=== PATIENT | male | born 1945 | race Caucasian/White ===

== ENCOUNTER 2020-01-31 08:04 | Inpatient (IN) | payer OTHER ==
[~2020-01-31] VITALS: Ht 180.3 cm; Wt 74.8 kg
[2020-01-31 08:56] LABS: BASOPHILS % (AUTO) 0.1 % (0.0-5.0); HEMATOCRIT 36.6 % (42-54); LYMPHOCYTES % (AUTO) 10.9 % (21.0-51.0); MEAN CORPUSCULAR HEMOGLOBIN 29.2 pg (27.0-33.0); MEAN CORPUSCULAR HGB CONC 31.4 g/dL (32.0-36.0); MEAN CORPUSCULAR VOLUME 92.9 fL (79-99); MONOCYTES % (AUTO) 0.9 % (3.0-13.0); NEUTROPHILS % (AUTO) 87.2 % (40.0-77.0); PLATELET COUNT (AUTO) 161 K/uL (130-400); RED BLOOD CELL COUNT(AUTO) 3.94 MIL/uL (4.50-6.20); RED CELL DISTRIBUTION WIDTH 14.5 % (11.0-15.5); WHITE BLOOD COUNT (AUTO) 10.9 K/uL (4.8-10.8)
[2020-01-31 09:11] LABS: INR 0.99 (0.85-1.15); PROTHROMBIN TIME 10.7 SEC (9.6-11.6)
[2020-01-31 09:22] LABS: CREATININE 1.8 mg/dL (0.5-1.5); POTASSIUM 4.4 mmol/L (3.5-5.1)
[2020-01-31 09:24] LABS: B-TYPE NATRIURETIC PEPTIDE 122 pg/mL (0-100)
[2020-01-31 09:25] LABS: ALBUMIN 3.5 g/dL (3.5-5.0); BILIRUBIN,TOTAL 0.9 mg/dL (0.2-1.0); TOTAL PROTEIN, SERUM 7.1 g/dL (6.0-8.3)
[2020-01-31 09:26] LABS: RAPID GROUP A STREP NEGATIVE (NEGATIVE)
[2020-01-31 10:03] LABS: FERRITIN 725 ng/mL (30-400)
[2020-01-31 10:11] LABS: D-DIMER > 10000 ng/mL (0-500)
[2020-01-31] MEDS ORDERED: DOXYCYCLINE HYCLATE 100 MG TABLET PO ONE (11:52)
[2020-01-31] MEDS ORDERED: CEFTRIAXONE SODIUM 1 GM ONE (11:52)
[2020-01-31] MEDS ORDERED: LACTATED RINGERS 1000ML 1,000 ML IV SCH (12:03)
[2020-01-31] MEDS ORDERED: NITROGLYCERIN 0.4 MG SL TAB SL PRN (12:15)
[2020-01-31] MEDS ORDERED: METHYLPREDNISOLONE SOD SUCC 125MG/2ML VIAL IV SCH (12:15)
[2020-01-31] MEDS: CEFTRIAXONE SODIUM 1 GM IV SCH (12:15)
[2020-01-31] MEDS ORDERED: DiphenhydrAMINE HCL 50 MG/ML VIAL IV PRN (12:15)
[2020-01-31] MEDS ORDERED: DIPHENHYDRAMINE HCL 25 MG CAPSULE PO PRN (12:15)
[2020-01-31] MEDS ORDERED: GUAIFENESIN-DM 200/20 MG 10 ML PO PRN (12:15)
[2020-01-31] MEDS ORDERED: HYDRALAZINE HCL 20 MG/ML VIAL IV PRN (12:15)
[2020-01-31] MEDS ORDERED: MAG HYDROX/AL HYDROX/SIMETH ES 30 ML SUSP UDCUP PO PRN (12:15)
[2020-01-31] MEDS ORDERED: LACTULOSE 20 GM/30 ML UDCUP PO PRN (12:15)
[2020-01-31] MEDS ORDERED: ACETAMINOPHEN 325 MG TAB PO PRN ×2 (12:15)
[2020-01-31] MEDS: DOXYCYCLINE 100MG+NS 250ML 250 ML IV SCH (12:15)
[2020-01-31] MEDS ORDERED: ONDANSETRON HCL 4 MG/2 ML VIAL IV PRN (12:15)
[2020-01-31] MEDS: METHYLPREDNISOLONE SOD SUCC 40MG/ML 1ML IVP SCH ×2 (12:30→20:30)
[2020-01-31 12:37] LABS: APPEARANCE,URINE Clear (CLEAR); BILIRUBIN,URINE Negative (NEGATIVE); COLOR,URINE Yellow (YELLOW); GLUCOSE, URINE (UA) Negative (NEGATIVE); KETONES,URINE Negative (NEGATIVE); LEUKOCYTE ESTERASE ,URINE Negative (NEGATIVE); NITRATE,URINE Negative (NEGATIVE); OCCULT BLOOD,URINE Negative (NEGATIVE); PROTEIN,URINE POS 1+ mg/dL (NEGATIVE)
[2020-01-31] MEDS ORDERED: HYDRALAZINE HCL 20 MG/ML VIAL ONE ×2 (12:39→18:35)
[2020-01-31] MEDS ORDERED: ENOXAPARIN SODIUM 30 MG/0.3 ML SQ ONE (12:40)
[2020-01-31] MEDS ORDERED: TRAMADOL HCL 50 MG TABLET ONE ×2 (12:55→20:12)
[2020-01-31] MEDS ORDERED: METHYLPREDNISOLONE SOD SUCC 40MG/ML 1ML ONE ×3 (13:27→21:53)
[2020-01-31 13:28] LABS: BACTERIA,URINE Few /HPF (None Seen); CALCIUM OXALATE CRYSTALS,UR Few /LPF (None Seen)
[2020-01-31] MEDS: ENOXAPARIN SODIUM 80 MG/0.8 ML SQ SCH ×2 (14:00→21:00)
[2020-01-31] MEDS: FAMOTIDINE 20MG TAB 20 MG TAB PO SCH (21:00)
[2020-01-31] MEDS ORDERED: NITROGLYCERIN 1GM/1 INCH PACKET TD ONE (21:53)
[2020-01-31] MEDS: NITROGLYCERIN 1GM/1 INCH PACKET TD SCH (22:00)
[2020-02-01] MEDS: DOXYCYCLINE 100MG+NS 250ML 250 ML IV SCH ×2 (00:15→12:15)
[2020-02-01] MEDS: CEFTRIAXONE SODIUM 1 GM IV SCH ×2 (00:15→13:30)
[2020-02-01] MEDS ORDERED: CEFTRIAXONE SODIUM 1 GM ONE ×2 (01:23→12:15)
[2020-02-01] MEDS ORDERED: DOXYCYCLINE HYCLATE 100 MG TABLET PO ONE (01:23)
[2020-02-01] MEDS: NITROGLYCERIN 1GM/1 INCH PACKET TD SCH ×4 (04:00→22:00)
[2020-02-01] MEDS: METHYLPREDNISOLONE SOD SUCC 40MG/ML 1ML IVP SCH ×3 (04:30→20:30)
[2020-02-01 06:20] LABS: HEMATOCRIT 32.8 % (42-54); LYMPHOCYTES % (AUTO) 11.4 % (21.0-51.0); MEAN CORPUSCULAR HEMOGLOBIN 29.4 pg (27.0-33.0); MEAN CORPUSCULAR VOLUME 91.9 fL (79-99); MONOCYTES % (AUTO) 3.2 % (3.0-13.0); NEUTROPHILS % (AUTO) 84.3 % (40.0-77.0); PLATELET COUNT (AUTO) 188 K/uL (130-400); RED BLOOD CELL COUNT(AUTO) 3.57 MIL/uL (4.50-6.20); RED CELL DISTRIBUTION WIDTH 14.9 % (11.0-15.5); WHITE BLOOD COUNT (AUTO) 11.4 K/uL (4.8-10.8)
[2020-02-01 06:22] LABS: BILIRUBIN,TOTAL 0.6 mg/dL (0.2-1.0); CREATININE 1.4 mg/dL (0.5-1.5); CRP QUANTITATIVE 6.2 mg/L (0.00-9.0); POTASSIUM 4.1 mmol/L (3.5-5.1); TOTAL PROTEIN, SERUM 6.1 g/dL (6.0-8.3)
[2020-02-01] MEDS ORDERED: NITROGLYCERIN 1GM/1 INCH PACKET TD ONE ×3 (06:57→21:42)
[2020-02-01] MEDS ORDERED: TRAMADOL HCL 50 MG TABLET ONE ×3 (06:58→22:01)
[2020-02-01] MEDS: ENOXAPARIN SODIUM 80 MG/0.8 ML SQ SCH ×2 (09:00→21:00)
[2020-02-01] MEDS: FAMOTIDINE 20MG TAB 20 MG TAB PO SCH ×2 (09:00→21:00)
[2020-02-01] MEDS ORDERED: FAMOTIDINE 20MG TAB 20 MG TAB ONE (09:57)
[2020-02-01] MEDS ORDERED: SODIUM CHLORIDE 0.9% 100 ML IV ONE (12:15)
[2020-02-01] MEDS ORDERED: METHYLPREDNISOLONE SOD SUCC 125MG/2ML VIAL ONE (12:15)
--- NOTE | 2020-02-01 16:55 | NUR ---
DCP: HOME Sw spoke to pt's Janae Seymour [phone] or [phone]. reports pt is independent of ADLS, has walker w/c shower chair, and CPAP, no in home care services. Pt seen at [facility] and Dr Pierce for cancer. Plan is home at ok Addendum: 02/01/20 at 1657 by SHERLY CAMARA Amended: Links added.
[2020-02-01] MEDS ORDERED: ENOXAPARIN SODIUM 100 MG/1 ML SQ ONE (21:41)
[2020-02-01] MEDS ORDERED: METHYLPREDNISOLONE SOD SUCC 40MG/ML 1ML ONE (21:42)
[2020-02-01] MEDS ORDERED: FAMOTIDINE/PF 20 MG/2 ML VIAL IV ONE (21:43)
[2020-02-02] MEDS: CEFTRIAXONE SODIUM 1 GM IV SCH ×2 (00:15→12:15)
[2020-02-02] MEDS: DOXYCYCLINE 100MG+NS 250ML 250 ML IV SCH ×2 (00:15→12:15)
[2020-02-02] MEDS ORDERED: CEFTRIAXONE SODIUM 1 GM ONE (01:46)
[2020-02-02] MEDS ORDERED: DOXYCYCLINE HYCLATE 100 MG TABLET PO ONE (01:46)
[2020-02-02] MEDS: NITROGLYCERIN 1GM/1 INCH PACKET TD SCH ×4 (04:00→22:00)
[2020-02-02] MEDS: METHYLPREDNISOLONE SOD SUCC 40MG/ML 1ML IVP SCH ×3 (04:30→20:30)
[2020-02-02 06:54] LABS: BASOPHILS % (AUTO) 0.1 % (0.0-5.0); EOSINOPHILS % (AUTO) 0.1 % (0.0-8.0); HEMATOCRIT 35.5 % (42-54); LYMPHOCYTES % (AUTO) 10.9 % (21.0-51.0); MEAN CORPUSCULAR HEMOGLOBIN 29.2 pg (27.0-33.0); MEAN CORPUSCULAR HGB CONC 31.3 g/dL (32.0-36.0); MEAN CORPUSCULAR VOLUME 93.4 fL (79-99); MONOCYTES % (AUTO) 3.1 % (3.0-13.0); NEUTROPHILS % (AUTO) 84.2 % (40.0-77.0); PLATELET COUNT (AUTO) 217 K/uL (130-400); RED CELL DISTRIBUTION WIDTH 15.1 % (11.0-15.5); WHITE BLOOD COUNT (AUTO) 14.1 K/uL (4.8-10.8)
[2020-02-02 07:28] LABS: ALBUMIN 3.3 g/dL (3.5-5.0); BILIRUBIN,TOTAL 0.6 mg/dL (0.2-1.0); CREATININE 1.3 mg/dL (0.5-1.5); POTASSIUM 3.9 mmol/L (3.5-5.1); TOTAL PROTEIN, SERUM 6.6 g/dL (6.0-8.3)
[2020-02-02] MEDS: ENOXAPARIN SODIUM 80 MG/0.8 ML SQ SCH ×2 (09:00→21:00)
[2020-02-02] MEDS: FAMOTIDINE 20MG TAB 20 MG TAB PO SCH ×2 (09:00→21:00)
[2020-02-02] MEDS ORDERED: ENOXAPARIN SODIUM 100 MG/1 ML SQ ONE (09:40)
[2020-02-02] MEDS ORDERED: NITROGLYCERIN 1GM/1 INCH PACKET TD ONE (09:40)
[2020-02-02] MEDS ORDERED: FAMOTIDINE/PF 20 MG/2 ML VIAL IV ONE (09:41)
[2020-02-02] MEDS ORDERED: METHYLPREDNISOLONE SOD SUCC 40MG/ML 1ML ONE ×2 (14:04→23:10)
[2020-02-02] MEDS ORDERED: DOXYCYCLINE 100MG+NS 250ML 250 ML IV ONE (14:04)
[2020-02-02] MEDS ORDERED: TRAMADOL HCL 50 MG TABLET ONE ×2 (14:05→22:50)
[2020-02-02] MEDS ORDERED: ENOXAPARIN SODIUM 40 MG/0.4 ML SYRINGE SQ ONE (23:10)
[2020-02-03] MEDS: CEFTRIAXONE SODIUM 1 GM IV SCH ×3 (00:15→23:13)
[2020-02-03] MEDS: DOXYCYCLINE 100MG+NS 250ML 250 ML IV SCH ×3 (00:15→23:45)
[2020-02-03] MEDS ORDERED: CEFTRIAXONE SODIUM 1 GM ONE ×2 (00:50→13:22)
[2020-02-03] MEDS ORDERED: NITROGLYCERIN 1GM/1 INCH PACKET TD ONE ×2 (00:51→09:57)
[2020-02-03] MEDS ORDERED: DOXYCYCLINE HYCLATE 100 MG TABLET PO ONE (00:52)
[2020-02-03] MEDS ORDERED: ACETAMINOPHEN 325 MG TAB ONE (01:16)
[2020-02-03] MEDS: NITROGLYCERIN 1GM/1 INCH PACKET TD SCH ×4 (04:00→22:34)
[2020-02-03] MEDS: METHYLPREDNISOLONE SOD SUCC 40MG/ML 1ML IVP SCH ×3 (04:30→22:33)
[2020-02-03] MEDS ORDERED: METHYLPREDNISOLONE SOD SUCC 125MG/2ML VIAL ONE (06:24)
[2020-02-03 06:46] LABS: BASOPHILS % (AUTO) 0.1 % (0.0-5.0); EOSINOPHILS % (AUTO) 0.1 % (0.0-8.0); HEMATOCRIT 32.6 % (42-54); LYMPHOCYTES % (AUTO) 8.2 % (21.0-51.0); MEAN CORPUSCULAR HEMOGLOBIN 29.7 pg (27.0-33.0); MEAN CORPUSCULAR HGB CONC 31.9 g/dL (32.0-36.0); MEAN CORPUSCULAR VOLUME 93.1 fL (79-99); MONOCYTES % (AUTO) 3.6 % (3.0-13.0); NEUTROPHILS % (AUTO) 87.1 % (40.0-77.0); PLATELET COUNT (AUTO) 181 K/uL (130-400); RED CELL DISTRIBUTION WIDTH 14.9 % (11.0-15.5); WHITE BLOOD COUNT (AUTO) 12.3 K/uL (4.8-10.8)
[2020-02-03 07:22] LABS: ALANINE AMINOTRANSFERASE 24 U/L (12-78); ALBUMIN 2.9 g/dL (3.5-5.0); ASPARTATE AMINOTRANSFERASE 19 U/L (10-37); BILIRUBIN,TOTAL 0.5 mg/dL (0.2-1.0); CARBON DIOXIDE 26 mmol/L (21-32); CHLORIDE 105 mmol/L (101-111); CREATININE 1.3 mg/dL (0.5-1.5); GLOMERULAR FILTR. RATE CALC 57 mL/min (>60); GLUCOSE,RANDOM 162 mg/dL (70-105); LACTATE DEHYDROGENASE 253 U/L (81-234); POTASSIUM 3.9 mmol/L (3.5-5.1); SODIUM SERUM 139 mmol/L (136-145); TOTAL PROTEIN, SERUM 5.7 g/dL (6.0-8.3); UREA NITROGEN, BLOOD 32 mg/dL (7-18)
[2020-02-03 07:23] LABS: CRP QUANTITATIVE < 2.00 mg/L (0.00-9.0)
[2020-02-03] MEDS: ENOXAPARIN SODIUM 80 MG/0.8 ML SQ SCH ×2 (09:00→22:33)
[2020-02-03] MEDS: FAMOTIDINE 20MG TAB 20 MG TAB PO SCH ×2 (09:00→21:00)
[2020-02-03] MEDS ORDERED: ENOXAPARIN SODIUM 60 MG/0.6 ML SQ ONE (09:56)
[2020-02-03] MEDS ORDERED: ENOXAPARIN SODIUM 30 MG/0.3 ML SQ ONE (09:57)
[2020-02-03] MEDS ORDERED: FAMOTIDINE/PF 20 MG/2 ML VIAL IV ONE (10:00)
[2020-02-03] MEDS ORDERED: SODIUM CHLORIDE 0.9% 100 ML IV ONE (13:22)
[2020-02-03 14:05] VITALS: BP 147/80
[2020-02-03] MEDS ORDERED: DEXA4TAB PO (15:21)
[2020-02-03] MEDS ORDERED: ONDA8TAB65 PO (15:21)
[2020-02-03] MEDS ORDERED: TRAM50TA4 PO (15:21)
[2020-02-03] MEDS ORDERED: CHOL5POW MC (15:21)
[2020-02-03] MEDS ORDERED: [UNRECOGNIZED DRUG - CODE] SQ (15:21)
[2020-02-03] MEDS ORDERED: LOSA100T58 PO (15:21)
[2020-02-03] MEDS ORDERED: POLY30DR OP (15:21)
[2020-02-03 16:00] VITALS: BP 160/94
[2020-02-03] MEDS: LOPERAMIDE HCL 2 MG CAP PO PRN (16:51)
[2020-02-04] VITALS (7 sets, daily range): BP systolic 126–171; BP diastolic 84–96
[2020-02-04] MEDS: NITROGLYCERIN 1GM/1 INCH PACKET TD SCH ×4 (04:08→21:34)
[2020-02-04 05:36] LABS: BASOPHILS % (AUTO) 0.3 % (0.0-5.0); HEMATOCRIT 34.8 % (42-54); LYMPHOCYTES % (AUTO) 8.6 % (21.0-51.0); MEAN CORPUSCULAR HGB CONC 31.3 g/dL (32.0-36.0); MEAN CORPUSCULAR VOLUME 92.6 fL (79-99); MONOCYTES % (AUTO) 4.8 % (3.0-13.0); NEUTROPHILS % (AUTO) 84.4 % (40.0-77.0); PLATELET COUNT (AUTO) 195 K/uL (130-400); RED BLOOD CELL COUNT(AUTO) 3.76 MIL/uL (4.50-6.20); RED CELL DISTRIBUTION WIDTH 14.6 % (11.0-15.5); WHITE BLOOD COUNT (AUTO) 11.9 K/uL (4.8-10.8)
[2020-02-04] MEDS: METHYLPREDNISOLONE SOD SUCC 40MG/ML 1ML IVP SCH ×3 (06:11→21:56)
[2020-02-04] MEDS ORDERED: ARTIFICAL TEARS SOL 15 ML OP PRN (08:30)
[2020-02-04 08:57] LABS: CREATININE 1.4 mg/dL (0.5-1.5); POTASSIUM 3.8 mmol/L (3.5-5.1)
[2020-02-04] MEDS: FAMOTIDINE 20MG TAB 20 MG TAB PO SCH ×2 (09:00→21:00)
[2020-02-04 09:01] LABS: CRP QUANTITATIVE 2.8 mg/L (0.00-9.0)
[2020-02-04] MEDS ORDERED: APIXABAN 5 MG TABLET PO SCH ×3 (09:15→21:00)
[2020-02-04] MEDS: LOSARTAN 100 MG TABLET PO SCH (09:35)
[2020-02-04] MEDS: CHOLESTYRAMINE PACKET 4 GM PACKET PO SCH (09:35)
[2020-02-04] MEDS: ENOXAPARIN SODIUM 80 MG/0.8 ML SQ SCH (09:36)
[2020-02-04] MEDS ORDERED: AMOX-429 PO (10:12)
[2020-02-04] MEDS ORDERED: APIX5TAB PO (10:12)
[2020-02-04] MEDS: DOXYCYCLINE 100MG+NS 250ML 250 ML IV SCH (12:11)
[2020-02-04] MEDS: CEFTRIAXONE SODIUM 1 GM IV SCH (12:11)
[2020-02-04] MEDS: DOXYCYCLINE HYCLATE 100 MG TABLET PO SCH ×2 (13:30→21:16)
[2020-02-04] MEDS: TRAMADOL HCL 50 MG TABLET PO PRN ×2 (14:05→21:32)
[2020-02-05] MEDS: CEFTRIAXONE SODIUM 1 GM IV SCH ×2 (00:09→12:48)
[2020-02-05 03:54] VITALS: BP 139/82
[2020-02-05] MEDS: NITROGLYCERIN 1GM/1 INCH PACKET TD SCH ×2 (04:00→11:37)
[2020-02-05 05:24] LABS: BASOPHILS % (AUTO) 0.2 % (0.0-5.0); HEMATOCRIT 33.3 % (42-54); LYMPHOCYTES % (AUTO) 8.8 % (21.0-51.0); MEAN CORPUSCULAR HEMOGLOBIN 29.1 pg (27.0-33.0); MEAN CORPUSCULAR HGB CONC 31.5 g/dL (32.0-36.0); MEAN CORPUSCULAR VOLUME 92.2 fL (79-99); MONOCYTES % (AUTO) 3.4 % (3.0-13.0); NEUTROPHILS % (AUTO) 85.7 % (40.0-77.0); PLATELET COUNT (AUTO) 195 K/uL (130-400); RED BLOOD CELL COUNT(AUTO) 3.61 MIL/uL (4.50-6.20); RED CELL DISTRIBUTION WIDTH 14.5 % (11.0-15.5); WHITE BLOOD COUNT (AUTO) 12.1 K/uL (4.8-10.8)
[2020-02-05 05:49] LABS: ALBUMIN 2.8 g/dL (3.5-5.0); BILIRUBIN,TOTAL 0.7 mg/dL (0.2-1.0); CREATININE 1.3 mg/dL (0.5-1.5); CRP QUANTITATIVE 2.5 mg/L (0.00-9.0); POTASSIUM 3.6 mmol/L (3.5-5.1); TOTAL PROTEIN, SERUM 5.5 g/dL (6.0-8.3)
[2020-02-05] MEDS: METHYLPREDNISOLONE SOD SUCC 40MG/ML 1ML IVP SCH ×2 (06:03→15:15)
[2020-02-05 08:58] VITALS: BP 157/89
[2020-02-05] MEDS ORDERED: APIXABAN 5 MG TABLET PO SCH (09:00)
[2020-02-05] MEDS: LOSARTAN 100 MG TABLET PO SCH (09:15)
[2020-02-05] MEDS: CHOLESTYRAMINE PACKET 4 GM PACKET PO SCH (09:15)
[2020-02-05] MEDS: DOXYCYCLINE HYCLATE 100 MG TABLET PO SCH (09:15)
[2020-02-05] MEDS: FAMOTIDINE 20MG TAB 20 MG TAB PO SCH (11:35)
[2020-02-05 12:40] VITALS: BP 146/82
[2020-02-05] MEDS: LOPERAMIDE HCL 2 MG CAP PO PRN (13:20)
[2020-02-05] MEDS ORDERED: SULFAMETHOX-TMP DS 800/160 TAB PO SCH ×2 (14:30→21:00)
[2020-02-05] MEDS ORDERED: SULF1TAB42 PO (14:36)
--- NOTE | 2020-02-05 17:20 | NUR ---
PER MD ORDERS DISCHARGED PT. TELE AND IV REMOVED, IV TIP INTACT. DISCHARGE INSTRUCTIONS GIVEN TO PT, REVIEWED APPT DATES/TIMES AND NEW MEDICATIONS. PT STATED UNDERSTANDING.
== END 2020-02-05 17:20 | disposition home or self-care (01) | DRG 299 ==
LOC: EDH 08:04 → EDHIP 12:03 → 3AH 02-03 12:56
PROVIDERS: ADMIT Family Medicine; ATTEND Family Medicine
DX: I82.412 Acute embolism and thrombosis of left femoral vein (principal); I26.99 Other pulmonary embolism without acute cor pulmonale; J18.9 Pneumonia, unspecified organism; J96.01 Acute respiratory failure with hypoxia; N17.9 Acute kidney failure, unspecified; C90.00 Multiple myeloma not having achieved remission; J98.11 Atelectasis; I82.432 Acute embolism and thrombosis of left popliteal vein; D64.9 Anemia, unspecified; N18.9 Chronic kidney disease, unspecified; I12.9 Hypertensive chronic kidney disease with stage 1 through stage 4 chronic kidney disease, or unspecified chronic kidney disease; E78.5 Hyperlipidemia, unspecified; Z20.828 Contact with and (suspected) exposure to other viral communicable diseases; Z92.21 Personal history of antineoplastic chemotherapy
CPT/HCPCS: 36415; 71045; 71250; 80048; 80053; 81001; 82550; 82728; 83605; 83615; 83880; 84145; 84484; 85025; 85378; 85610; 85730; 86140; 87040; 87804; 87880; 93005; 93970; 99291; G0378; J0360; J0696; J1650; J2920; J2930; J3490; U0003

== ENCOUNTER 2020-02-21 12:22 | Inpatient (IN) | payer OTHER ==
[~2020-02-21] VITALS: Ht 180.3 cm; Wt 73.2 kg
[~2020-02-21 12:22] MED LIST: APIX5TAB PO; CHOL5POW MC; DEXA4TAB PO; LOSA100T58 PO; ONDA8TAB65 PO; POLY30DR OP; SULF1TAB42 PO; TRAM50TA4 PO; [UNRECOGNIZED DRUG - CODE] SQ
[2020-02-21 13:30] LABS: HEMATOCRIT 33.5 % (42-54); LYMPHOCYTES % (AUTO) 9.7 % (21.0-51.0); MEAN CORPUSCULAR HEMOGLOBIN 29.6 pg (27.0-33.0); MEAN CORPUSCULAR HGB CONC 31.6 g/dL (32.0-36.0); MEAN CORPUSCULAR VOLUME 93.6 fL (79-99); MONOCYTES % (AUTO) 5.5 % (3.0-13.0); NEUTROPHILS % (AUTO) 84.5 % (40.0-77.0); PLATELET COUNT (AUTO) 168 K/uL (130-400); RED BLOOD CELL COUNT(AUTO) 3.58 MIL/uL (4.50-6.20); WHITE BLOOD COUNT (AUTO) 8.9 K/uL (4.8-10.8)
[2020-02-21 13:39] LABS: CREATININE 1.5 mg/dL (0.5-1.5)
[2020-02-21] MEDS ORDERED: SODIUM CHLORIDE 0.9% 500ML 500 ML IV ONE (13:43)
[2020-02-21 13:45] LABS: ALBUMIN 3.3 g/dL (3.5-5.0); BILIRUBIN,TOTAL 0.7 mg/dL (0.2-1.0); TOTAL PROTEIN, SERUM 6.7 g/dL (6.0-8.3)
[2020-02-21 14:13] LABS: B-TYPE NATRIURETIC PEPTIDE 153 pg/mL (0-100)
[2020-02-21 15:23] LABS: APPEARANCE,URINE SL CLOUDY (CLEAR); BILIRUBIN,URINE NEGATIVE (NEGATIVE); COLOR,URINE YELLOW (YELLOW); GLUCOSE, URINE (UA) NEGATIVE (NEGATIVE); KETONES,URINE 5 mg/dL (NEGATIVE); LEUKOCYTE ESTERASE ,URINE NEGATIVE (NEGATIVE); NITRATE,URINE NEGATIVE (NEGATIVE); OCCULT BLOOD,URINE MODERATE (NEGATIVE); PROTEIN,URINE 30 mg/dL (NEGATIVE); UROBILINOGEN,URINE 0.2 mg/dL (0.2-1.0)
[2020-02-21 15:30] LABS: BACTERIA,URINE Few /HPF (None Seen); RBC,URINE 26-50 /HPF (0-1); SQUAMOUS EPITHELIAL CELL,UR Few /HPF (0-2)
[2020-02-21 15:31] LABS: MUCUS,URINE Moderate LPF (None Seen)
[2020-02-21] MEDS ORDERED: IOHEXOL-350 75 ML VIAL IV ONE (16:21)
[2020-02-21] MEDS ORDERED: HYDRALAZINE HCL 20 MG/ML VIAL ONE (16:55)
[2020-02-21] MEDS ORDERED: ACETAMINOPHEN EXTRA STRENGTH 500 MG TABLET ONE (18:12)
[2020-02-21] MEDS ORDERED: SODIUM CHLORIDE 0.9% 1000ML 1,000 ML IV SCH (19:11)
[2020-02-21] MEDS ORDERED: DIPHENHYDRAMINE HCL 25 MG CAPSULE PO PRN (19:15)
[2020-02-21] MEDS ORDERED: ONDANSETRON HCL 4 MG/2 ML VIAL IV PRN (19:15)
[2020-02-21] MEDS ORDERED: NITROGLYCERIN 0.4 MG SL TAB SL PRN (19:15)
[2020-02-21] MEDS ORDERED: ERGOCALCIFEROL (VITAMIN D2) 50,000 UNIT CAPSULE PO ONE (20:00)
[2020-02-21 23:18] LABS: LACTATE DEHYDROGENASE 205 U/L (81-234); TRIGLYCERIDES 75 mg/dL (30-200)
[2020-02-22] MEDS ORDERED: HEPARIN SODIUM 5000UNIT/ML 1ML VIAL ONE (00:08)
[2020-02-22] MEDS ORDERED: HEPARIN 25000 UNITS/250 ML D5W 250 ML IV ONE (00:08)
[2020-02-22] MEDS ORDERED: FAMOTIDINE/PF 20 MG/2 ML VIAL IV ONE (00:09)
[2020-02-22] MEDS ORDERED: ERGOCALCIFEROL (VITAMIN D2) 50,000 UNIT CAPSULE ONE (00:09)
[2020-02-22] MEDS ORDERED: HYDRALAZINE HCL 20 MG/ML VIAL IV PRN (01:30)
[2020-02-22 01:47] LABS: INR 0.96 (0.85-1.15); PARTIAL THROMBOPLASTIN TIME 32.3 SEC (26.3-35.5); PROTHROMBIN TIME 10.4 SEC (9.6-11.6)
[2020-02-22 06:12] LABS: BASOPHILS % (AUTO) 0.1 % (0.0-5.0); EOSINOPHILS % (AUTO) 0.4 % (0.0-8.0); HEMATOCRIT 30.3 % (42-54); LYMPHOCYTES % (AUTO) 25.4 % (21.0-51.0); MEAN CORPUSCULAR HEMOGLOBIN 30.2 pg (27.0-33.0); MEAN CORPUSCULAR HGB CONC 32.3 g/dL (32.0-36.0); MEAN CORPUSCULAR VOLUME 93.5 fL (79-99); MONOCYTES % (AUTO) 7.4 % (3.0-13.0); NEUTROPHILS % (AUTO) 66.3 % (40.0-77.0); PLATELET COUNT (AUTO) 138 K/uL (130-400); RED BLOOD CELL COUNT(AUTO) 3.24 MIL/uL (4.50-6.20); RED CELL DISTRIBUTION WIDTH 15.6 % (11.0-15.5); WHITE BLOOD COUNT (AUTO) 7.3 K/uL (4.8-10.8)
[2020-02-22 06:56] LABS: ALANINE AMINOTRANSFERASE 25 U/L (12-78); ALBUMIN 2.9 g/dL (3.5-5.0); ASPARTATE AMINOTRANSFERASE 15 U/L (10-37); BILIRUBIN,TOTAL 0.6 mg/dL (0.2-1.0); CARBON DIOXIDE 21 mmol/L (21-32); CHLORIDE 112 mmol/L (101-111); CREATININE 1.2 mg/dL (0.5-1.5); GLOMERULAR FILTR. RATE CALC 63 mL/min (>60); GLUCOSE,RANDOM 115 mg/dL (70-105); LACTATE DEHYDROGENASE 191 U/L (81-234); POTASSIUM 3.7 mmol/L (3.5-5.1); SODIUM SERUM 143 mmol/L (136-145); TOTAL PROTEIN, SERUM 5.5 g/dL (6.0-8.3); UREA NITROGEN, BLOOD 25 mg/dL (7-18)
[2020-02-22 07:38] LABS: PROTHROMBIN TIME 10.8 SEC (9.6-11.6)
[2020-02-22 07:45] LABS: PARTIAL THROMBOPLASTIN TIME > 120.0 SEC (26.3-35.5)
[2020-02-22] MEDS ORDERED: ALBUTEROL INHALER 90MCG/INH IH PRN (09:30)
[2020-02-22] MEDS ORDERED: ASCORBIC ACID 500 MG TAB ONE (10:54)
[2020-02-22] MEDS ORDERED: FAMOTIDINE 20MG TAB 20 MG TAB ONE (10:54)
[2020-02-22] MEDS ORDERED: ZINC SULFATE 220 CAPSULE ONE (10:55)
[2020-02-22] MEDS: FAMOTIDINE 20MG TAB 20 MG TAB PO SCH (10:57)
[2020-02-22] MEDS: ZINC SULFATE 220 CAPSULE PO SCH (10:57)
[2020-02-22] MEDS: ASCORBIC ACID 500 MG TAB PO SCH (10:57)
[2020-02-22] MEDS ORDERED: ACETAMINOPHEN 325 MG TAB ONE (11:00)
[2020-02-22] MEDS ORDERED: TRAMADOL HCL 50 MG TABLET PO PRN (11:00)
[2020-02-22] MEDS ORDERED: OCTREOTIDE ACETATE 100 MCG/ML AMP SQ PRN (11:00)
[2020-02-22] MEDS ORDERED: ARTIFICAL TEARS SOL 15 ML OP PRN (11:00)
[2020-02-22] MEDS ORDERED: DEXAMETHASONE 4 MG TAB PO SCH (11:05)
[2020-02-22 12:00] VITALS: BP 146/86
[2020-02-22] MEDS: CHOLESTYRAMINE PACKET 4 GM PACKET PO SCH (12:27)
[2020-02-22] MEDS ORDERED: LOSARTAN 50 MG TABLET ONE (12:30)
--- NOTE | 2020-02-22 12:49 | NUR ---
SPOKE TO PARTNER ON PHONE FOR DC PLANNING SPOKE TO SANCHEZ BRANCH VIA PHONE- SHE STATES THE NUMBER WE HAVE IN SYSTEM FOR PATIENT IS INCORRECT- HE HAS HIS PHONE [phone] & SPECIALTY PERSON WITH HIM . STATES SHE IS GIRLFRIEND, NOT SPOUSE- (PT HAD LISTED HER SPOUSE WHEN ASKED AT ADMISSION)- BUT IS CURRENTLY LIVING WITH PATIENT BECAUSE HE HAS A RECENT DECREASE IN FUNCTION. PREVIOUSLY PT WAS INDEPENDENT ALTHOUGH HE USED A CANE, WALKER, AND HAD A WHEELCHAIR AVAILABLE . HE HAS A NEBULIZER, WAS PRESCRIBED CPAP BUT ONLY USED IT FOR ONE NIGHT - HE SAID IT WAS TOO NOISY. SANCHEZ WILL PROVIDE TRANSPORT HOME AND WILL BE AVAILABLE TO PROVIDE CARE DURING RECOVERY .ADDED DAUGHTER'S NAME/# ANNIE MCKEON [phone]- L[place]ES [place] OF [place]. WILL FAX TO REGISTRATION FOR UPDATING Addendum: 02/23/20 at 1155 by ROSELYN ANDERSON RN CM Amended: Links added.
[2020-02-22] MEDS: LOSARTAN 100 MG TABLET PO SCH (13:00)
--- NOTE | 2020-02-22 16:05 | NUR ---
TELE MED CALL WITH DR CONROY. UPDATED ON VS AND PT STATUS, QUESTIONS ANSWERED, NO NEW ORDERS RECEIVED
[2020-02-22 16:07] VITALS: BP 132/75
--- NOTE | 2020-02-22 19:05 | NUR ---
IV TO RIGHT AC LEAKING, D/C AND STARTED 20GA LEFT HAND. HEPARIN INFUSING.
[2020-02-23] MEDS ORDERED: HEPARIN 25000 UNITS/250 ML D5W 250 ML IV ONE (00:45)
[2020-02-23] MEDS ORDERED: ACETAMINOPHEN 325 MG TAB ONE ×2 (03:12→08:35)
[2020-02-23 06:07] LABS: BASOPHILS % (AUTO) 0.2 % (0.0-5.0); EOSINOPHILS % (AUTO) 3.4 % (0.0-8.0); HEMATOCRIT 29.9 % (42-54); LYMPHOCYTES % (AUTO) 34.1 % (21.0-51.0); MEAN CORPUSCULAR HEMOGLOBIN 29.2 pg (27.0-33.0); MEAN CORPUSCULAR HGB CONC 31.1 g/dL (32.0-36.0); MONOCYTES % (AUTO) 8.4 % (3.0-13.0); NEUTROPHILS % (AUTO) 53.2 % (40.0-77.0); PLATELET COUNT (AUTO) 138 K/uL (130-400); RED BLOOD CELL COUNT(AUTO) 3.18 MIL/uL (4.50-6.20); RED CELL DISTRIBUTION WIDTH 15.5 % (11.0-15.5); WHITE BLOOD COUNT (AUTO) 5.9 K/uL (4.8-10.8)
[2020-02-23 06:49] LABS: ALANINE AMINOTRANSFERASE 29 U/L (12-78); ALBUMIN 2.7 g/dL (3.5-5.0); ASPARTATE AMINOTRANSFERASE 19 U/L (10-37); BILIRUBIN,TOTAL 0.6 mg/dL (0.2-1.0); CARBON DIOXIDE 25 mmol/L (21-32); CHLORIDE 113 mmol/L (101-111); CREATININE 1.1 mg/dL (0.5-1.5); CRP QUANTITATIVE < 2.00 mg/L (0.00-9.0); GLOMERULAR FILTR. RATE CALC 69 mL/min (>60); GLUCOSE,RANDOM 95 mg/dL (70-105); LACTATE DEHYDROGENASE 195 U/L (81-234); POTASSIUM 3.5 mmol/L (3.5-5.1); SODIUM SERUM 144 mmol/L (136-145); TOTAL PROTEIN, SERUM 5.3 g/dL (6.0-8.3); UREA NITROGEN, BLOOD 21 mg/dL (7-18)
[2020-02-23] MEDS ORDERED: CHOLESTYRAMINE 5 GM MC SCH (09:00)
--- NOTE | 2020-02-23 11:45 | NUR ---
Pt arrived from ED to room 322, vitals WNL, O2 98% on room air, but exhibits some shortness of breath upon talking, so O2 @ 2lpm via nc applied. Has 20 g left hand with heparin infusing at 13 ml/hr (1300 unit/hr), last PTT drawn just before transfer to floor, awaiting results. Verified IV pump settings for heparin with 2nd nurse Wilber Goodson LVN. Pt also c/o yellow, mucoid diarrhea this morning. States in chronic due to chemotherapy, takes sq octreotide prn at home. Home meds, including this one, have been resumed at hospital, notified pharmacy of need to deliver to floor. Notified pt will administer as soon as available. Oriented pt to room and call light, bedside table and call light in easy reach.
[2020-02-23 12:00] VITALS: BP 128/68
--- NOTE | 2020-02-23 12:00 | NUR ---
Call placed to Dr. Pierce's cell phone to notify of transfer. No answer; message left requesting call back.
--- NOTE | 2020-02-23 12:30 | NUR ---
PTT 80.5, per heparin protocol, must adjust down by 2 units/kg/hr. Pump settings changes to 1100 units per hr (11ml/hr), verification with Ulysses Bell RN. Still awaiting arrival of SQ octreotide.
[2020-02-23] MEDS: LOSARTAN 100 MG TABLET PO SCH (13:18)
[2020-02-23] MEDS: CHOLESTYRAMINE PACKET 4 GM PACKET PO SCH (13:18)
[2020-02-23] MEDS: ZINC SULFATE 220 CAPSULE PO SCH (13:19)
[2020-02-23] MEDS: ASCORBIC ACID 500 MG TAB PO SCH (13:19)
[2020-02-23] MEDS: FAMOTIDINE 20MG TAB 20 MG TAB PO SCH (13:19)
[2020-02-23 16:00] VITALS: BP 125/73
--- NOTE | 2020-02-23 18:30 | NUR ---
No call back thus far from Dr. Pierce. Called to office/answering service, jerri hernandez. Will attempt again. Awaiting results of 1829 pt/ptt for heparin adjustment. Addendum: 02/23/20 at 1918 by HERMES ZARAGOZA RN RN Paged Dr. King, hand stoner for Dr. Pierce, via answering service. Awaiting call back.
[2020-02-23 18:51] LABS: INR 0.99 (0.85-1.15); PARTIAL THROMBOPLASTIN TIME 74.5 SEC (26.3-35.5); PROTHROMBIN TIME 10.7 SEC (9.6-11.6)
--- NOTE | 2020-02-23 19:00 | NUR ---
PTT is 74.5. Per heparin protocol, dose is to be decreased by 2 units/kg/hr. New pump setting is 900 units/hr or 9 ml/hr, verified by second nurse Ulysses Jama RN.
[2020-02-23 20:00] VITALS: BP 147/95
[2020-02-23] MEDS: HEPARIN 25000 UNITS/250 ML D5W 250 ML IV SCH (21:53)
[2020-02-24] VITALS: BP 139/83
[2020-02-24 01:50] LABS: PARTIAL THROMBOPLASTIN TIME 45.3 SEC (26.3-35.5); PROTHROMBIN TIME 10.8 SEC (9.6-11.6)
--- NOTE | 2020-02-24 02:25 | NUR ---
ptt is 45.3 so i changed his heparin drip from 9 ml/hr to 11 ml/hr. fredy morrissey RN, witnessed the change
[2020-02-24 04:00] VITALS: BP 146/92
[2020-02-24 05:32] LABS: BASOPHILS % (AUTO) 0.2 % (0.0-5.0); EOSINOPHILS % (AUTO) 4.6 % (0.0-8.0); HEMATOCRIT 32.2 % (42-54); LYMPHOCYTES % (AUTO) 30.4 % (21.0-51.0); MEAN CORPUSCULAR HEMOGLOBIN 29.5 pg (27.0-33.0); MEAN CORPUSCULAR HGB CONC 31.1 g/dL (32.0-36.0); MONOCYTES % (AUTO) 8.5 % (3.0-13.0); NEUTROPHILS % (AUTO) 55.8 % (40.0-77.0); PLATELET COUNT (AUTO) 151 K/uL (130-400); RED BLOOD CELL COUNT(AUTO) 3.39 MIL/uL (4.50-6.20); RED CELL DISTRIBUTION WIDTH 15.4 % (11.0-15.5); WHITE BLOOD COUNT (AUTO) 5.9 K/uL (4.8-10.8)
[2020-02-24 05:58] LABS: ALANINE AMINOTRANSFERASE 28 U/L (12-78); ALBUMIN 2.6 g/dL (3.5-5.0); ASPARTATE AMINOTRANSFERASE 18 U/L (10-37); BILIRUBIN,TOTAL 0.6 mg/dL (0.2-1.0); CARBON DIOXIDE 25 mmol/L (21-32); CHLORIDE 110 mmol/L (101-111); CREATININE 1.1 mg/dL (0.5-1.5); GLOMERULAR FILTR. RATE CALC 69 mL/min (>60); GLUCOSE,RANDOM 102 mg/dL (70-105); LACTATE DEHYDROGENASE 158 U/L (81-234); POTASSIUM 3.7 mmol/L (3.5-5.1); SODIUM SERUM 143 mmol/L (136-145); TOTAL PROTEIN, SERUM 5.3 g/dL (6.0-8.3); UREA NITROGEN, BLOOD 19 mg/dL (7-18)
[2020-02-24 05:59] LABS: CRP QUANTITATIVE < 2.00 mg/L (0.00-9.0)
[2020-02-24] MEDS: ACETAMINOPHEN 325 MG TAB PO PRN ×2 (07:36→21:58)
[2020-02-24 08:09] LABS: INR 1.02 (0.85-1.15); PARTIAL THROMBOPLASTIN TIME 52.7 SEC (26.3-35.5)
[2020-02-24 08:28] VITALS: BP 143/86
[2020-02-24] MEDS: CHOLESTYRAMINE PACKET 4 GM PACKET PO SCH (09:41)
[2020-02-24] MEDS: FAMOTIDINE 20MG TAB 20 MG TAB PO SCH (09:42)
[2020-02-24] MEDS: ASCORBIC ACID 500 MG TAB PO SCH (09:42)
[2020-02-24] MEDS: LOSARTAN 100 MG TABLET PO SCH (09:42)
[2020-02-24] MEDS: ZINC SULFATE 220 CAPSULE PO SCH (09:42)
[2020-02-24 11:06] LABS: INR 1.02 (0.85-1.15); PARTIAL THROMBOPLASTIN TIME 60.3 SEC (26.3-35.5)
[2020-02-24 12:00] VITALS: BP 141/89
[2020-02-24] MEDS ORDERED: COMPOUND IV REFRIGERATED 1 EACH IVSOLN MISC PRN (12:30)
[2020-02-24] MEDS: OCTREOTIDE ACETATE 500 MCG in SODIUM CHLORIDE 0.9% 97.5 ML IV SCH (13:03)
[2020-02-24 15:17] LABS: PARTIAL THROMBOPLASTIN TIME 63.4 SEC (26.3-35.5); PROTHROMBIN TIME 10.8 SEC (9.6-11.6)
[2020-02-24 16:00] VITALS: BP 140/83
[2020-02-24 19:55] VITALS: BP 123/74
[2020-02-24] MEDS: HEPARIN 25000 UNITS/250 ML D5W 250 ML IV SCH (19:59)
[2020-02-25 00:17] VITALS: BP 132/65
[2020-02-25 04:00] VITALS: BP 148/76
[2020-02-25] MEDS: OCTREOTIDE ACETATE 500 MCG in SODIUM CHLORIDE 0.9% 97.5 ML IV SCH (06:49)
[2020-02-25 07:37] LABS: BASOPHILS % (AUTO) 0.2 % (0.0-5.0); EOSINOPHILS % (AUTO) 7.4 % (0.0-8.0); HEMATOCRIT 32.9 % (42-54); LYMPHOCYTES % (AUTO) 32.5 % (21.0-51.0); MEAN CORPUSCULAR HEMOGLOBIN 29.5 pg (27.0-33.0); MEAN CORPUSCULAR VOLUME 95.1 fL (79-99); MONOCYTES % (AUTO) 7.4 % (3.0-13.0); NEUTROPHILS % (AUTO) 51.6 % (40.0-77.0); PLATELET COUNT (AUTO) 163 K/uL (130-400); RED BLOOD CELL COUNT(AUTO) 3.46 MIL/uL (4.50-6.20); RED CELL DISTRIBUTION WIDTH 15.2 % (11.0-15.5); WHITE BLOOD COUNT (AUTO) 4.6 K/uL (4.8-10.8)
[2020-02-25 08:00] VITALS: BP 162/94
[2020-02-25 08:07] LABS: ALBUMIN 2.7 g/dL (3.5-5.0); BILIRUBIN,TOTAL 0.6 mg/dL (0.2-1.0); CREATININE 1.1 mg/dL (0.5-1.5); POTASSIUM 4.1 mmol/L (3.5-5.1); TOTAL PROTEIN, SERUM 5.3 g/dL (6.0-8.3)
[2020-02-25] MEDS: CHOLESTYRAMINE PACKET 4 GM PACKET PO SCH (08:32)
[2020-02-25] MEDS: ASCORBIC ACID 500 MG TAB PO SCH (08:32)
[2020-02-25] MEDS: ZINC SULFATE 220 CAPSULE PO SCH (08:32)
[2020-02-25] MEDS: FAMOTIDINE 20MG TAB 20 MG TAB PO SCH (08:32)
[2020-02-25] MEDS: LOSARTAN 100 MG TABLET PO SCH (08:32)
[2020-02-25 12:00] VITALS: BP 129/85
[2020-02-25 14:41] LABS: INR 1.01 (0.85-1.15); PROTHROMBIN TIME 10.9 SEC (9.6-11.6)
[2020-02-25 16:00] VITALS: BP 153/93
[2020-02-25] MEDS: HEPARIN 25000 UNITS/250 ML D5W 250 ML IV SCH (19:37)
[2020-02-25 19:52] VITALS: BP 144/86
[2020-02-25 21:40] LABS: INR 1.01 (0.85-1.15); PARTIAL THROMBOPLASTIN TIME 62.7 SEC (26.3-35.5); PROTHROMBIN TIME 10.9 SEC (9.6-11.6)
--- NOTE | 2020-02-25 21:50 | NUR ---
aptt at 62.7 so heparin drip stays at 9 ml/hr until lab redraw again at 04:00 am
[2020-02-26 00:16] VITALS: BP 145/93
[2020-02-26] MEDS: OCTREOTIDE ACETATE 500 MCG in SODIUM CHLORIDE 0.9% 97.5 ML IV SCH ×2 (03:18→20:13)
[2020-02-26 03:51] VITALS: BP 121/73
[2020-02-26] MEDS: ACETAMINOPHEN 325 MG TAB PO PRN ×2 (06:14→16:18)
[2020-02-26 06:57] LABS: INR 1.01 (0.85-1.15); PARTIAL THROMBOPLASTIN TIME 65.3 SEC (26.3-35.5); PROTHROMBIN TIME 10.9 SEC (9.6-11.6)
[2020-02-26 08:26] VITALS: BP 167/97
[2020-02-26] MEDS: ASCORBIC ACID 500 MG TAB PO SCH (08:57)
[2020-02-26] MEDS: ZINC SULFATE 220 CAPSULE PO SCH (08:57)
[2020-02-26] MEDS: LOSARTAN 100 MG TABLET PO SCH (08:57)
[2020-02-26] MEDS: CHOLESTYRAMINE PACKET 4 GM PACKET PO SCH (08:57)
[2020-02-26] MEDS: FAMOTIDINE 20MG TAB 20 MG TAB PO SCH (08:57)
[2020-02-26 11:39] VITALS: BP 159/98
[2020-02-26 16:00] VITALS: BP 169/99
[2020-02-26 19:30] VITALS: BP 137/77
[2020-02-26] MEDS: HEPARIN 25000 UNITS/250 ML D5W 250 ML IV SCH (20:40)
[2020-02-27] VITALS (7 sets, daily range): BP systolic 124–149; BP diastolic 66–95
[2020-02-27] MEDS: ACETAMINOPHEN 325 MG TAB PO PRN (03:16)
[2020-02-27 06:57] LABS: BASOPHILS % (AUTO) 0.4 % (0.0-5.0); EOSINOPHILS % (AUTO) 6.8 % (0.0-8.0); HEMATOCRIT 32.7 % (42-54); LYMPHOCYTES % (AUTO) 29.1 % (21.0-51.0); MEAN CORPUSCULAR HEMOGLOBIN 29.7 pg (27.0-33.0); MEAN CORPUSCULAR HGB CONC 31.5 g/dL (32.0-36.0); MEAN CORPUSCULAR VOLUME 94.2 fL (79-99); MONOCYTES % (AUTO) 7.7 % (3.0-13.0); NEUTROPHILS % (AUTO) 55.3 % (40.0-77.0); PLATELET COUNT (AUTO) 168 K/uL (130-400); RED BLOOD CELL COUNT(AUTO) 3.47 MIL/uL (4.50-6.20); RED CELL DISTRIBUTION WIDTH 15.3 % (11.0-15.5); WHITE BLOOD COUNT (AUTO) 5.5 K/uL (4.8-10.8)
[2020-02-27 07:21] LABS: CREATININE 1.4 mg/dL (0.5-1.5); POTASSIUM 3.7 mmol/L (3.5-5.1)
--- NOTE | 2020-02-27 07:30 | NUR ---
PTT OF 54.5 PT ON A HEPARIN DRIP CONT ON THE HEARIN DRIP AT 900 UNITS / HR. AT 9 ML/HR WITH A PTT FOR 02/28/20 AT 0800
[2020-02-27 07:31] LABS: INR 0.98 (0.85-1.15); PARTIAL THROMBOPLASTIN TIME 54.5 SEC (26.3-35.5); PROTHROMBIN TIME 10.6 SEC (9.6-11.6)
[2020-02-27] MEDS: ZINC SULFATE 220 CAPSULE PO SCH (08:15)
[2020-02-27] MEDS: FAMOTIDINE 20MG TAB 20 MG TAB PO SCH (08:15)
[2020-02-27] MEDS: CHOLESTYRAMINE PACKET 4 GM PACKET PO SCH (08:15)
[2020-02-27] MEDS: ASCORBIC ACID 500 MG TAB PO SCH (08:15)
[2020-02-27] MEDS: LOSARTAN 100 MG TABLET PO SCH (08:16)
[2020-02-27] MEDS: OCTREOTIDE ACETATE 500 MCG in SODIUM CHLORIDE 0.9% 97.5 ML IV SCH (21:13)
[2020-02-27] MEDS: HEPARIN 25000 UNITS/250 ML D5W 250 ML IV SCH (21:15)
[2020-02-28 04:18] VITALS: BP 130/79
[2020-02-28 04:19] VITALS: BP 130/79
[2020-02-28 07:49] LABS: BASOPHILS % (AUTO) 0.5 % (0.0-5.0); EOSINOPHILS % (AUTO) 6.4 % (0.0-8.0); HEMATOCRIT 35.1 % (42-54); LYMPHOCYTES % (AUTO) 30.2 % (21.0-51.0); MEAN CORPUSCULAR HEMOGLOBIN 29.3 pg (27.0-33.0); MEAN CORPUSCULAR HGB CONC 30.8 g/dL (32.0-36.0); MEAN CORPUSCULAR VOLUME 95.1 fL (79-99); MONOCYTES % (AUTO) 7.5 % (3.0-13.0); NEUTROPHILS % (AUTO) 54.4 % (40.0-77.0); PLATELET COUNT (AUTO) 195 K/uL (130-400); RED BLOOD CELL COUNT(AUTO) 3.69 MIL/uL (4.50-6.20); RED CELL DISTRIBUTION WIDTH 15.5 % (11.0-15.5); WHITE BLOOD COUNT (AUTO) 5.8 K/uL (4.8-10.8)
[2020-02-28 08:08] VITALS: BP 145/84
[2020-02-28 08:08] LABS: ALBUMIN 2.9 g/dL (3.5-5.0); BILIRUBIN,TOTAL 0.7 mg/dL (0.2-1.0); CREATININE 1.2 mg/dL (0.5-1.5); POTASSIUM 3.8 mmol/L (3.5-5.1); TOTAL PROTEIN, SERUM 5.7 g/dL (6.0-8.3)
[2020-02-28 08:09] LABS: INR 0.99 (0.85-1.15); PARTIAL THROMBOPLASTIN TIME 51.3 SEC (26.3-35.5); PROTHROMBIN TIME 10.7 SEC (9.6-11.6)
--- NOTE | 2020-02-28 08:45 | NUR ---
PTT OF 51.3 CONT ONTHE HEPARIN DRIP AT 900 UNITS / HR. 9 ML/HR NO CHANGE PER HEPARIN FLOW SHEET PROTOCOL WILL CONT HEPARIN DRIP UNTIL DR. LUNDBERG. FOR UPDATE . CARE .
[2020-02-28] MEDS: ASCORBIC ACID 500 MG TAB PO SCH (09:25)
[2020-02-28] MEDS: LOSARTAN 100 MG TABLET PO SCH (09:25)
[2020-02-28] MEDS: CHOLESTYRAMINE PACKET 4 GM PACKET PO SCH (09:25)
[2020-02-28] MEDS: ZINC SULFATE 220 CAPSULE PO SCH (09:25)
[2020-02-28] MEDS: FAMOTIDINE 20MG TAB 20 MG TAB PO SCH (09:36)
--- NOTE | 2020-02-28 09:50 | NUR ---
DR. CHRISTINA GALVAN ROUNDING . .UPDATE PT CARE. AND PTT AND PLAN OF CARE. AND HEPARIN DRIP INFUSING PER PROTOCOL CONT WITH THE HEPARIN DRIP UNTIL DR. SAWYER IS ABLE TO ORDER A ANTICOAGULATON MEDICATION FOR DISCHARGE CARE . ADDRESS PLAN OF CARE TO PT .
[2020-02-28] MEDS: ACETAMINOPHEN 325 MG TAB PO PRN ×3 (10:29→12:00)
--- NOTE | 2020-02-28 11:14 | NUR ---
RD NOTIFICATION Pt admitted with PE. Pt tolerating Heart Healthy diet order with no report of GI distress. Good PO intake. Pt requests Coffee and juice at each meal. Vitamin C, Zinc supplementation in place. LBM 02/23. Recommend continue diet order RD to continue to monitor. Please notify as additional nutrition concerns arise. Thank you.
[2020-02-28 11:28] VITALS: BP 144/88
--- NOTE | 2020-02-28 15:02 | NUR ---
Spoke with Dr Pierce. Instructed to ask pt to contact his S/O to pickling operator Xarelto at the physicians office. Once the S/O has obtained the medication, we can discontinue the Heparin gtt and proceed with discharge after the Hospitalist are notified. Arrangements are made to speak with her (since she doesn't speak Bulgarian well) to go to the doctor's office before 1700 today. The pt states understanding he cannot be discharged until the steps are met.
[2020-02-28 15:57] VITALS: BP 126/86
--- NOTE | 2020-02-28 17:58 | NUR ---
PT PREPARED FOR DISCHARGE. IV X2 REMOVED W/O DIFFICULTY OR COMPLICATION. GAUZE DRSG IN PLACE, C/D/I. DISCHARGE INSTRUCTIONS REVIEWED AND UNDERSTOOD BY PT. DISCHARGED BY W/C IN GOOD CONDITION ACCOMPANIED BY HIS S/O.
== END 2020-02-28 18:00 | disposition home or self-care (01) | DRG 175 ==
LOC: EDH 12:22 → EDHIP 18:18 → 3DH 02-23 12:04
PROVIDERS: ADMIT Internal Medicine; ATTEND Internal Medicine
DX: I26.99 Other pulmonary embolism without acute cor pulmonale (principal); J96.01 Acute respiratory failure with hypoxia; I10 Essential (primary) hypertension; E78.5 Hyperlipidemia, unspecified; D89.9 Disorder involving the immune mechanism, unspecified; E11.9 Type 2 diabetes mellitus without complications; F02.80 Dementia in other diseases classified elsewhere, unspecified severity, without behavioral disturbance, psychotic disturbance, mood disturbance, and anxiety; G30.9 Alzheimer's disease, unspecified; I25.10 Atherosclerotic heart disease of native coronary artery without angina pectoris; J44.9 Chronic obstructive pulmonary disease, unspecified; Z79.01 Long term (current) use of anticoagulants; Z80.1 Family history of malignant neoplasm of trachea, bronchus and lung; Z86.711 Personal history of pulmonary embolism; Z86.718 Personal history of other venous thrombosis and embolism; Z92.21 Personal history of antineoplastic chemotherapy; Z03.818 Encounter for observation for suspected exposure to other biological agents ruled out
CPT/HCPCS: 36415; 71045; 71275; 80048; 80053; 81001; 82550; 82728; 82948; 83605; 83615; 83880; 84145; 84478; 84484; 85025; 85378; 85384; 85610; 85730; 86140; 87040; 87486; 87493; 87581; 87633; 87798; 93005; G0378; J0360; J1644; J2354; J3490; J7040; Q0163; Q9967; U0003

== ENCOUNTER 2021-01-30 10:38 | Day surgery (SDC) | payer OTHER ==
[2021-01-27 12:45] VITALS: BP 156/79
[2021-01-27 13:18] LABS: BASOPHILS % (AUTO) 0.3 % (0.0-5.0); EOSINOPHILS % (AUTO) 3.4 % (0.0-8.0); HEMATOCRIT 38.6 % (42-54); LYMPHOCYTES % (AUTO) 25.9 % (21.0-51.0); MEAN CORPUSCULAR HEMOGLOBIN 30.1 pg (27.0-33.0); MEAN CORPUSCULAR HGB CONC 31.6 g/dL (32.0-36.0); MEAN CORPUSCULAR VOLUME 95.3 fL (79-99); MONOCYTES % (AUTO) 7.8 % (3.0-13.0); NEUTROPHILS % (AUTO) 62.2 % (40.0-77.0); PLATELET COUNT (AUTO) 169 K/uL (130-400); RED BLOOD CELL COUNT(AUTO) 4.05 MIL/uL (4.50-6.20); RED CELL DISTRIBUTION WIDTH 13.8 % (11.0-15.5); WHITE BLOOD COUNT (AUTO) 8.9 K/uL (4.8-10.8)
[2021-01-27 13:31] LABS: INR 1.06 (0.85-1.15); PROTHROMBIN TIME 11.5 SEC (9.6-11.6)
[2021-01-27 13:32] LABS: PARTIAL THROMBOPLASTIN TIME 26.5 SEC (26.3-35.5)
[2021-01-27 13:33] LABS: ALBUMIN 3.5 g/dL (3.5-5.0); BILIRUBIN,TOTAL 1.3 mg/dL (0.2-1.0); CREATININE 1.2 mg/dL (0.5-1.5); POTASSIUM 4.3 mmol/L (3.5-5.1); TOTAL PROTEIN, SERUM 6.7 g/dL (6.0-8.3)
[2021-01-29] MEDS: CEFAZOLIN SODIUM 1 GM VIAL IVP SCH (12:50)
[~2021-01-30] VITALS: Ht 154.9 cm; Wt 77.2 kg
[2021-01-30] VITALS (20 sets, daily range): BP systolic 129–179; BP diastolic 68–94
[~2021-01-30 10:38] MED LIST changes: -APIX5TAB PO; -CHOL5POW MC; +FLUT16H NS; +OMEP40CA21 PO; -POLY30DR OP; +RIVA20TA PO; -SULF1TAB42 PO; -[UNRECOGNIZED DRUG - CODE] SQ
[2021-01-30] MEDS ORDERED: LACTATED RINGERS 1000ML 1,000 ML IV ONE (11:43)
[2021-01-30] MEDS ORDERED: LIDOCAINE 1%-EPI 1:100,000 20 ML VIAL IJ SCH (13:00)
[2021-01-30] MEDS ORDERED: PROPOFOL 10 MG/ML 20ML VIAL IV ONE ×2 (13:02→16:30)
[2021-01-30] MEDS ORDERED: FENTANYL CITRATE PF 50 MCG/1 ML 2ML VIAL ONE (13:02)
[2021-01-30] MEDS ORDERED: SUCCINYLCHOLINE 200MG/10ML SYR ONE (13:02)
[2021-01-30] MEDS ORDERED: LIDOCAINE PF 100MG/5ML (2%) SYRINGE 5ML ONE (13:02)
[2021-01-30] MEDS ORDERED: CITRIC ACID/SODIUM CITRATE 30 ML UDCUP ONE (13:17)
[2021-01-30] MEDS ORDERED: MIDAZOLAM HCL 1 MG/ML 2ML VIAL ONE (13:28)
[2021-01-30] MEDS: CEFAZOLIN SODIUM 1 GM VIAL IVP SCH (13:45)
[2021-01-30] MEDS ORDERED: GLYCOPYRROLATE 1 MG/5 ML SYRINGE ONE (13:58)
[2021-01-30] MEDS ORDERED: PHENYLEPHRINE HCL 10 MG/ML 1ML VIAL IV ONE (14:37)
[2021-01-30] MEDS ORDERED: BACITRACIN 28.4 GM OINT TP ONE (14:41)
[2021-01-30] MEDS ORDERED: MEPERIDINE-PF 25 MG/ML SYG ONE (16:56)
[2021-01-30] MEDS ORDERED: HYDRALAZINE 20MG/ML VIAL ONE (17:05)
[2021-01-30] MEDS ORDERED: IPRATROPIUM/ALBUTEROL SULFATE 3 ML SOLUTION IH ONE (17:52)
[2021-01-31] MEDS ORDERED: SULF1TAB41 PO (08:50)
[2021-01-31] MEDS ORDERED: TAMS-1 PO (08:50)
[2021-01-31] MEDS ORDERED: OCTR50DI2 IJ (22:54)
== END 2021-01-30 19:15 | disposition home or self-care (01) ==
LOC: DAH 10:38
PROVIDERS: ATTEND Otolaryngology Plastic Surgery within the Head & Neck
DX: C44.319 Basal cell carcinoma of skin of other parts of face (principal); Z20.822 Contact with and (suspected) exposure to COVID-19; C44.311 Basal cell carcinoma of skin of nose; L57.0 Actinic keratosis; G47.33 Obstructive sleep apnea (adult) (pediatric); K21.9 Gastro-esophageal reflux disease without esophagitis; I10 Essential (primary) hypertension; E78.5 Hyperlipidemia, unspecified; Z88.0 Allergy status to penicillin; Z79.82 Long term (current) use of aspirin; Z79.01 Long term (current) use of anticoagulants
CPT/HCPCS: 11642; 11644; 14041; 36415; 71045; 80053; 85025; 85610; 85730; 87635; 88305; 88331; 88332; 93005; 94640; A4215; A4221; A4222; A4223; A4600; A4606; A6260; C9803; J0330; J0360; J0690; J2001; J2175; J2250; J2370; J2704 ×2; J3010; J3490 ×2; J7120 ×2

== ENCOUNTER 2021-01-31 07:42 | Observation (INO) | payer OTHER ==
[2021-01-31] VITALS (7 sets, daily range): BP systolic 102–153; BP diastolic 54–78
[~2021-01-31] VITALS: Ht 180.3 cm; Wt 75.7 kg
[2021-01-31] MEDS ORDERED: SULF1TAB41 PO (08:50)
[2021-01-31] MEDS ORDERED: TAMS-1 PO (08:50)
[2021-01-31 08:59] LABS: APPEARANCE,URINE Clear (CLEAR); BILIRUBIN,URINE Negative (NEGATIVE); COLOR,URINE Yellow (YELLOW); GLUCOSE, URINE (UA) Negative (NEGATIVE); KETONES,URINE Negative (NEGATIVE); LEUKOCYTE ESTERASE ,URINE Negative (NEGATIVE); NITRATE,URINE Negative (NEGATIVE); OCCULT BLOOD,URINE Nonhemolyzed Trace (NEGATIVE); PH,URINE 5.5 (5.0-8.0); PROTEIN,URINE Negative (NEGATIVE); UROBILINOGEN,URINE 0.2 mg/dL (0.2-1.0)
[2021-01-31] MEDS: LEVOFLOXACIN 500 MG TABLET PO SCH ×2 (09:00→09:59)
[2021-01-31] MEDS ORDERED: CIPROFLOXACIN HCL 500 MG TABLET PO SCH (09:00)
[2021-01-31] MEDS: TAMSULOSIN HCL 0.4 MG CAP.ER.24H PO SCH ×3 (09:10→11:17)
[2021-01-31 09:31] LABS: BACTERIA,URINE Rare /HPF (None Seen); SQUAMOUS EPITHELIAL CELL,UR Rare /HPF (0-2)
[2021-01-31] MEDS: SULFAMETHOX-TMP DS 800/160 TAB PO SCH ×3 (09:46→11:17)
[2021-01-31 11:13] LABS: CREATININE 1.5 mg/dL (0.5-1.5); POTASSIUM 3.9 mmol/L (3.5-5.1)
[2021-01-31] MEDS ORDERED: METOPROLOL TARTRATE 1 MG/ML 5ML VIAL IV ONE (11:15)
[2021-01-31 11:17] LABS: ALBUMIN 3.1 g/dL (3.5-5.0); BILIRUBIN,TOTAL 1.8 mg/dL (0.2-1.0)
[2021-01-31 11:42] LABS: BASOPHILS % (AUTO) 0.1 % (0.0-5.0); EOSINOPHILS % (AUTO) 0.2 % (0.0-8.0); HEMATOCRIT 37.1 % (42-54); LYMPHOCYTES % (AUTO) 18.7 % (21.0-51.0); MEAN CORPUSCULAR HEMOGLOBIN 29.3 pg (27.0-33.0); MEAN CORPUSCULAR HGB CONC 31.3 g/dL (32.0-36.0); MEAN CORPUSCULAR VOLUME 93.7 fL (79-99); MONOCYTES % (AUTO) 7.4 % (3.0-13.0); PLATELET COUNT (AUTO) 156 K/uL (130-400); RED BLOOD CELL COUNT(AUTO) 3.96 MIL/uL (4.50-6.20); RED CELL DISTRIBUTION WIDTH 14.1 % (11.0-15.5); WHITE BLOOD COUNT (AUTO) 10.5 K/uL (4.8-10.8)
[2021-01-31 11:44] LABS: CREATINE KINASE, TOTAL 70 U/L (21-232); MYOGLOBIN 89 ng/mL (10-92); TROPONIN I < 0.04 ng/mL (0.00-0.06)
[2021-01-31 11:53] LABS: INR 1.04 (0.85-1.15); PROTHROMBIN TIME 11.3 SEC (9.6-11.6)
[2021-01-31] MEDS ORDERED: LACTULOSE 20 GM/30 ML UDCUP PO PRN (12:45)
[2021-01-31] MEDS ORDERED: ACETAMINOPHEN 325 MG TAB PO PRN ×2 (12:45)
[2021-01-31 13:24] LABS: MAGNESIUM 2.1 mg/dL (1.80-2.40); THYROID STIMULATING HORMONE 1.02 uIU/mL (0.36-3.74)
[2021-01-31] MEDS ORDERED: TRAMADOL HCL 50 MG TABLET ONE (13:59)
[2021-01-31] MEDS: TRAMADOL HCL 50 MG TABLET PO SCH ×2 (14:00→19:35)
[2021-01-31] MEDS ORDERED: METOPROLOL TARTRATE 25 MG TAB PO SCH ×2 (21:00)
[2021-01-31] MEDS ORDERED: OCTR50DI2 IJ (22:54)
[2021-02-01 03:49] LABS: BASOPHILS % (AUTO) 0.3 % (0.0-5.0); EOSINOPHILS % (AUTO) 2.8 % (0.0-8.0); HEMATOCRIT 32.2 % (42-54); LYMPHOCYTES % (AUTO) 24.1 % (21.0-51.0); MEAN CORPUSCULAR HEMOGLOBIN 30.4 pg (27.0-33.0); NEUTROPHILS % (AUTO) 63.2 % (40.0-77.0); PLATELET COUNT (AUTO) 122 K/uL (130-400); RED BLOOD CELL COUNT(AUTO) 3.39 MIL/uL (4.50-6.20); RED CELL DISTRIBUTION WIDTH 14.2 % (11.0-15.5); WHITE BLOOD COUNT (AUTO) 7.9 K/uL (4.8-10.8)
[2021-02-01 03:59] LABS: CREATININE 1.6 mg/dL (0.5-1.5); POTASSIUM 3.6 mmol/L (3.5-5.1)
[2021-02-01 04:30] VITALS: BP 142/80
[2021-02-01 08:27] VITALS: BP 137/79
[2021-02-01] MEDS: PANTOPRAZOLE 40 MG TAB DR PO SCH (09:20)
[2021-02-01] MEDS: METOPROLOL SUCCINATE 50 MG TAB.SR.24H PO SCH (09:20)
[2021-02-01] MEDS: ASPIRIN 81MG CHEW TAB PO SCH (09:20)
[2021-02-01] MEDS: RIVAROXABAN 20 MG TABLET PO SCH (09:20)
[2021-02-01] MEDS: LOSARTAN 100 MG TABLET PO SCH (09:20)
[2021-02-01 11:11] VITALS: BP 140/69
[2021-02-01] MEDS: TRAMADOL HCL 50 MG TABLET PO SCH (12:59)
[2021-02-01] MEDS ORDERED: TRAMADOL HCL 50 MG TABLET PO PRN (13:00)
[2021-02-01] MEDS ORDERED: TAMSULOSIN HCL 0.4 MG CAP.ER.24H ONE (13:37)
[2021-02-01 16:17] VITALS: BP 146/73
[2021-02-01 20:04] VITALS: BP 113/62
[2021-02-01 23:43] VITALS: BP 140/82
[2021-02-02 04:25] VITALS: BP 143/82
[2021-02-02 08:00] VITALS: BP 157/83
[2021-02-02] MEDS: ASPIRIN 81MG CHEW TAB PO SCH (08:58)
[2021-02-02] MEDS: RIVAROXABAN 20 MG TABLET PO SCH (08:58)
[2021-02-02] MEDS: METOPROLOL SUCCINATE 50 MG TAB.SR.24H PO SCH (08:58)
[2021-02-02] MEDS: LEVOFLOXACIN 500 MG TABLET PO SCH (08:59)
[2021-02-02] MEDS: PANTOPRAZOLE 40 MG TAB DR PO SCH (08:59)
[2021-02-02] MEDS: LOSARTAN 100 MG TABLET PO SCH (08:59)
[2021-02-02] MEDS ORDERED: TAMSULOSIN HCL 0.4 MG CAP.ER.24H PO SCH (09:00)
[2021-02-02] MEDS: SULFAMETHOX-TMP DS 800/160 TAB PO SCH (09:15)
[2021-02-02 12:00] VITALS: BP 160/82
[2021-02-02] MEDS ORDERED: METO-408 PO (16:05)
[2021-02-02] MEDS ORDERED: LEVO500T89 PO (16:05)
[2021-02-02] MEDS ORDERED: TAMS-1 PO (16:05)
== END 2021-02-02 16:00 | disposition home or self-care (01) ==
LOC: EDH 07:42 → INTOOBSV 12:33 → EDHIP 12:33 → OBSVTOIN 12:33 → 4AH 22:57
PROVIDERS: ADMIT Internal Medicine; ATTEND Internal Medicine
DX: I48.20 Chronic atrial fibrillation, unspecified (principal); R33.9 Retention of urine, unspecified; N40.1 Benign prostatic hyperplasia with lower urinary tract symptoms; I11.9 Hypertensive heart disease without heart failure; J44.9 Chronic obstructive pulmonary disease, unspecified; C90.00 Multiple myeloma not having achieved remission; D84.9 Immunodeficiency, unspecified; E11.9 Type 2 diabetes mellitus without complications; E78.5 Hyperlipidemia, unspecified; F02.80 Dementia in other diseases classified elsewhere, unspecified severity, without behavioral disturbance, psychotic disturbance, mood disturbance, and anxiety; G30.9 Alzheimer's disease, unspecified; I25.118 Atherosclerotic heart disease of native coronary artery with other forms of angina pectoris; Z86.711 Personal history of pulmonary embolism; Z79.01 Long term (current) use of anticoagulants; Z86.73 Personal history of transient ischemic attack (TIA), and cerebral infarction without residual deficits; Z87.891 Personal history of nicotine dependence; Z86.718 Personal history of other venous thrombosis and embolism
CPT/HCPCS: 36415 ×2; 71045; 80048; 80053; 80061; 81001; 82550; 83735; 83874; 84443; 84484 ×3; 85025 ×2; 85378; 85610; 93005 ×3; 93306; 93356; 96374; 99285; G0378 ×50; J3490

== ENCOUNTER 2021-11-08 11:51 | Emergency (ER) | payer OTHER ==
[~2021-11-08] VITALS: Ht 165.1 cm; Wt 74.8 kg
[~2021-11-08 11:51] MED LIST changes: +AMLO5TAB4 PO; -DEXA4TAB PO; -LOSA100T58 PO; +METO-408 PO; +ONDA-105 PO; -ONDA8TAB65 PO; +TAMS-1 PO
[2021-11-08 12:44] LABS: BASOPHILS % (AUTO) 0.7 % (0.0-5.0); EOSINOPHILS % (AUTO) 2.8 % (0.0-8.0); LYMPHOCYTES % (AUTO) 30.1 % (21.0-51.0); MEAN CORPUSCULAR HEMOGLOBIN 29.1 pg (27.0-33.0); MEAN CORPUSCULAR HGB CONC 31.3 g/dL (32.0-36.0); MONOCYTES % (AUTO) 8.2 % (3.0-13.0); NEUTROPHILS % (AUTO) 57.8 % (40.0-77.0); PLATELET COUNT (AUTO) 319 K/uL (130-400); RED BLOOD CELL COUNT(AUTO) 3.44 MIL/uL (4.50-6.20); RED CELL DISTRIBUTION WIDTH 14.5 % (11.0-15.5)
[2021-11-08 12:52] LABS: CREATININE 1.5 mg/dL (0.5-1.5); POTASSIUM 3.4 mmol/L (3.5-5.1)
[2021-11-08 12:57] LABS: ALBUMIN 2.8 g/dL (3.5-5.0); BILIRUBIN,TOTAL 0.4 mg/dL (0.2-1.0); TOTAL PROTEIN, SERUM 6.8 g/dL (6.0-8.3)
[2021-11-08 13:09] LABS: INR 1.1 (0.85-1.15); PROTHROMBIN TIME 11.9 SEC (9.6-11.6)
[2021-11-08 13:10] LABS: PARTIAL THROMBOPLASTIN TIME 27.5 SEC (26.3-35.5)
[2021-11-08 14:22] LABS: BILIRUBIN,URINE NEGATIVE (NEGATIVE); COLOR,URINE RED (YELLOW); GLUCOSE, URINE (UA) NEGATIVE (NEGATIVE); KETONES,URINE 5 mg/dL (NEGATIVE); LEUKOCYTE ESTERASE ,URINE SMALL (NEGATIVE); NITRATE,URINE POSITIVE (NEGATIVE); OCCULT BLOOD,URINE LARGE (NEGATIVE); PH,URINE 6.5 (5.0-8.0); PROTEIN,URINE >=300 mg/dL (NEGATIVE)
[2021-11-08 14:26] LABS: APPEARANCE,URINE SLIGHTLY CLOUDY (CLEAR)
[2021-11-08 14:31] LABS: BACTERIA,URINE Moderate /HPF (None Seen); MUCUS,URINE Rare LPF (None Seen); RBC,URINE 26-50 /HPF (0-1); SQUAMOUS EPITHELIAL CELL,UR 0-2 /HPF (0-2)
[2021-11-08 15:10] VITALS: BP 158/89
== END 2021-11-08 15:10 | disposition home or self-care (01) ==
LOC: EDH 11:51
DX: N39.0 Urinary tract infection, site not specified (principal); R31.9 Hematuria, unspecified; I10 Essential (primary) hypertension; Z79.899 Other long term (current) drug therapy; Z87.440 Personal history of urinary (tract) infections; Z87.442 Personal history of urinary calculi
CPT/HCPCS: 36415; 80053; 81001; 83605; 85025; 85610; 85730; 87040; 87077; 87088; 87186

== ENCOUNTER 2021-11-20 10:03 | Inpatient (IN) | payer OTHER ==
[~2021-11-20] VITALS: Ht 180.3 cm; Wt 72.3 kg
[2021-11-20 10:26] LABS: BASOPHILS % (AUTO) 0.7 % (0.0-5.0); EOSINOPHILS % (AUTO) 3.1 % (0.0-8.0); HEMATOCRIT 39.1 % (42-54); LYMPHOCYTES % (AUTO) 23.3 % (21.0-51.0); MEAN CORPUSCULAR HEMOGLOBIN 29.3 pg (27.0-33.0); MEAN CORPUSCULAR HGB CONC 30.7 g/dL (32.0-36.0); MEAN CORPUSCULAR VOLUME 95.6 fL (79-99); MONOCYTES % (AUTO) 0.5 % (3.0-13.0); NEUTROPHILS % (AUTO) 71.9 % (40.0-77.0); PLATELET COUNT (AUTO) 179 K/uL (130-400); RED BLOOD CELL COUNT(AUTO) 4.09 MIL/uL (4.50-6.20); RED CELL DISTRIBUTION WIDTH 15.1 % (11.0-15.5); WHITE BLOOD COUNT (AUTO) 8.7 K/uL (4.8-10.8)
[2021-11-20] MEDS ORDERED: ACETAMINOPHEN 500 MG TABLET PO ONE (10:30)
[2021-11-20 10:34] LABS: CREATININE 1.6 mg/dL (0.5-1.5); POTASSIUM 4.1 mmol/L (3.5-5.1)
[2021-11-20 10:38] LABS: ALBUMIN 3.5 g/dL (3.5-5.0); BILIRUBIN,TOTAL 0.9 mg/dL (0.2-1.0); TOTAL PROTEIN, SERUM 8.1 g/dL (6.0-8.3)
[2021-11-20] MEDS: MEROPENEM 1 GM VIAL IVP SCH ×2 (10:43→12:00)
[2021-11-20] MEDS ORDERED: ONDANSETRON 4MG INJ ONE (10:45)
[2021-11-20] MEDS: ONDANSETRON 4MG INJ IVP SCH ×2 (10:50→22:27)
[2021-11-20 10:56] LABS: APPEARANCE,URINE CLOUDY (CLEAR); BILIRUBIN,URINE NEGATIVE (NEGATIVE); COLOR,URINE YELLOW (YELLOW); GLUCOSE, URINE (UA) NEGATIVE (NEGATIVE); KETONES,URINE NEGATIVE (NEGATIVE); LEUKOCYTE ESTERASE ,URINE MODERATE (NEGATIVE); NITRATE,URINE POSITIVE (NEGATIVE); OCCULT BLOOD,URINE LARGE (NEGATIVE); PROTEIN,URINE 30 mg/dL (NEGATIVE); UROBILINOGEN,URINE 0.2 mg/dL (0.2-1.0)
[2021-11-20 10:56] LABS: APPEARANCE,URINE CLOUDY (CLEAR); BILIRUBIN,URINE NEGATIVE (NEGATIVE); COLOR,URINE YELLOW (YELLOW); GLUCOSE, URINE (UA) NEGATIVE (NEGATIVE); KETONES,URINE 5 mg/dL (NEGATIVE); LEUKOCYTE ESTERASE ,URINE SMALL (NEGATIVE); NITRATE,URINE POSITIVE (NEGATIVE); OCCULT BLOOD,URINE LARGE (NEGATIVE); PH,URINE 5.5 (5.0-8.0); PROTEIN,URINE 100 mg/dL (NEGATIVE); UROBILINOGEN,URINE 0.2 mg/dL (0.2-1.0)
[2021-11-20] MEDS ORDERED: 0.9%NACL 1000ML 2,259 ML IV ONE (11:00)
[2021-11-20] MEDS ORDERED: NACL IV ONE (11:00)
[2021-11-20 11:07] LABS: PROTHROMBIN TIME 10.9 SEC (9.6-11.6)
[2021-11-20 11:20] LABS: RBC,URINE 51-100 /HPF (0-1)
[2021-11-20 11:21] LABS: BACTERIA,URINE Moderate /HPF (None Seen); SQUAMOUS EPITHELIAL CELL,UR Rare /HPF (0-2); WBC,URINE >100 /HPF (0-1)
[2021-11-20 11:21] LABS: RBC,URINE 51-100 /HPF (0-1)
[2021-11-20 11:22] LABS: BACTERIA,URINE Moderate /HPF (None Seen); MUCUS,URINE Few LPF (None Seen); SQUAMOUS EPITHELIAL CELL,UR Rare /HPF (0-2); WBC,URINE 51-100 /HPF (0-1)
[2021-11-20 11:33] LABS: PARTIAL THROMBOPLASTIN TIME 18.2 SEC (26.3-35.5)
[2021-11-20] MEDS ORDERED: MORPHINE 2 MG SYG IVP PRN (12:00)
[2021-11-20] MEDS ORDERED: VANCOMYCIN PROTOCOL PER PHARMACY IV SCH (12:00)
[2021-11-20] MEDS ORDERED: METO-408 PO (12:16)
[2021-11-20] MEDS ORDERED: MULT-1203 PO (12:16)
[2021-11-20] MEDS ORDERED: CHOL500045 PO (12:16)
[2021-11-20] MEDS ORDERED: GABA-529 PO (12:16)
[2021-11-20] MEDS: LACTATED RINGERS 1000ML 1,000 ML IV SCH ×2 (13:35→22:00)
[2021-11-20] MEDS: VANCOMYCIN 1.25 GM/250 ML BAG 250 ML IV SCH (13:35)
[2021-11-21] VITALS (11 sets, daily range): BP systolic 110–155; BP diastolic 56–84
[2021-11-21] MEDS: MEROPENEM 1 GM VIAL IVP SCH ×4 (00:56→23:51)
[2021-11-21 04:35] LABS: BASOPHILS % (AUTO) 0.5 % (0.0-5.0); EOSINOPHILS % (AUTO) 3.2 % (0.0-8.0); HEMATOCRIT 28.5 % (42-54); LYMPHOCYTES % (AUTO) 13.1 % (21.0-51.0); MEAN CORPUSCULAR HEMOGLOBIN 30.2 pg (27.0-33.0); MEAN CORPUSCULAR VOLUME 91.6 fL (79-99); MONOCYTES % (AUTO) 8.9 % (3.0-13.0); NEUTROPHILS % (AUTO) 73.8 % (40.0-77.0); PLATELET COUNT (AUTO) 124 K/uL (130-400); RED BLOOD CELL COUNT(AUTO) 3.11 MIL/uL (4.50-6.20); RED CELL DISTRIBUTION WIDTH 15.6 % (11.0-15.5); WHITE BLOOD COUNT (AUTO) 11.1 K/uL (4.8-10.8)
[2021-11-21 04:53] LABS: INR 1.11 (0.85-1.15)
[2021-11-21 04:54] LABS: CREATININE 1.5 mg/dL (0.5-1.5); PARTIAL THROMBOPLASTIN TIME 25.6 SEC (26.3-35.5); PHOSPHORUS 3.4 mg/dL (2.5-4.9); POTASSIUM 4.1 mmol/L (3.5-5.1)
[2021-11-21] MEDS ORDERED: ACETAMINOPHEN 325 MG TAB ONE (05:08)
[2021-11-21] MEDS: Vitamin B Complex/Vit C/Folic Acid PO SCH (08:05)
[2021-11-21] MEDS: LACTATED RINGERS 1000ML 1,000 ML IV SCH ×3 (09:33→23:52)
[2021-11-21] MEDS: VANCOMYCIN 1.25 GM/250 ML BAG 250 ML IV SCH (13:07)
[2021-11-21] MEDS ORDERED: LIDOCAINE HCL 1% 20 ML VIAL ONE (14:16)
[2021-11-21] MEDS ORDERED: IOHEXOL-350 50ML VIAL IV ONE (14:16)
[2021-11-21] MEDS ORDERED: MIDAZOLAM HCL 1 MG/ML 2ML VIAL ONE (14:17)
[2021-11-21] MEDS ORDERED: FENTANYL CITRATE PF 50 MCG/1 ML 2ML VIAL ONE (14:17)
[2021-11-21] MEDS: ACETAMINOPHEN 325 MG TAB PO PRN (18:08)
[2021-11-21] MEDS ORDERED: CHOL500051 PO (18:26)
[2021-11-21] MEDS ORDERED: [UNRECOGNIZED DRUG - REMARK] PO (18:26)
[2021-11-21] MEDS ORDERED: DIPH1TAB24 PO (18:26)
[2021-11-22 03:20] VITALS: BP 143/79
[2021-11-22 03:38] LABS: HEMATOCRIT 30.8 % (42-54); MEAN CORPUSCULAR HEMOGLOBIN 29.5 pg (27.0-33.0); MEAN CORPUSCULAR HGB CONC 31.8 g/dL (32.0-36.0); MEAN CORPUSCULAR VOLUME 92.8 fL (79-99); RED BLOOD CELL COUNT(AUTO) 3.32 MIL/uL (4.50-6.20); RED CELL DISTRIBUTION WIDTH 15.1 % (11.0-15.5); WHITE BLOOD COUNT (AUTO) 6.6 K/uL (4.8-10.8)
[2021-11-22 03:51] LABS: CREATININE 1.4 mg/dL (0.5-1.5); MAGNESIUM 1.6 mg/dL (1.80-2.40); PHOSPHORUS 2.9 mg/dL (2.5-4.9); POTASSIUM 3.8 mmol/L (3.5-5.1)
[2021-11-22] MEDS ORDERED: ONDANSETRON 4MG INJ IVP PRN (07:30)
[2021-11-22] MEDS ORDERED: LIDOCAINE HCL-MPF 1% 2ML VIAL IV PRN (07:30)
[2021-11-22] MEDS ORDERED: POTASSIUM CHLORIDE 20MEQ/100ML 100 ML IV PRN (07:30)
[2021-11-22] MEDS ORDERED: POTASSIUM CHLORIDE 10% ELIXIR 20 MEQ/15 ML UDCUP PO PRN (07:30)
[2021-11-22] MEDS: MAGNESIUM 2GM PREMIX 50ML 50 ML IV PRN (08:33)
[2021-11-22] MEDS: Vitamin B Complex/Vit C/Folic Acid PO SCH (08:34)
[2021-11-22 08:53] VITALS: BP 147/75
[2021-11-22] MEDS ORDERED: TRAMADOL HCL 50 MG TABLET PO PRN (09:30)
[2021-11-22] MEDS: MEROPENEM 1 GM VIAL IVP SCH ×3 (10:54→21:55)
[2021-11-22] MEDS: VANCOMYCIN 1.25 GM/250 ML BAG 250 ML IV SCH (11:03)
[2021-11-22 12:01] VITALS: BP 155/77
[2021-11-22 13:18] LABS: ALBUMIN 2.4 g/dL (3.5-5.0); BILIRUBIN,TOTAL 0.8 mg/dL (0.2-1.0); CREATININE 1.4 mg/dL (0.5-1.5); MAGNESIUM 2.2 mg/dL (1.80-2.40); POTASSIUM 3.3 mmol/L (3.5-5.1); TOTAL PROTEIN, SERUM 6.2 g/dL (6.0-8.3)
[2021-11-22] MEDS: LACTATED RINGERS 1000ML 1,000 ML IV SCH ×2 (13:30→22:59)
[2021-11-22] MEDS: KCL 20 MEQ ERTAB PO PRN ×3 (14:58→21:55)
[2021-11-22] MEDS: ACETAMINOPHEN 325 MG TAB PO PRN ×2 (15:28→22:58)
[2021-11-22 16:53] VITALS: BP 143/76
[2021-11-22 20:11] VITALS: BP 120/61
[2021-11-22 23:18] VITALS: BP 145/78
[2021-11-23 03:52] VITALS: BP 119/66
[2021-11-23 04:07] LABS: BASOPHILS % (AUTO) 0.6 % (0.0-5.0); EOSINOPHILS % (AUTO) 0.4 % (0.0-8.0); HEMATOCRIT 35.6 % (42-54); MEAN CORPUSCULAR HEMOGLOBIN 29.1 pg (27.0-33.0); MEAN CORPUSCULAR HGB CONC 31.2 g/dL (32.0-36.0); MEAN CORPUSCULAR VOLUME 93.2 fL (79-99); MONOCYTES % (AUTO) 10.5 % (3.0-13.0); NEUTROPHILS % (AUTO) 73.1 % (40.0-77.0); PLATELET COUNT (AUTO) 134 K/uL (130-400); RED BLOOD CELL COUNT(AUTO) 3.82 MIL/uL (4.50-6.20); RED CELL DISTRIBUTION WIDTH 14.8 % (11.0-15.5); WHITE BLOOD COUNT (AUTO) 4.8 K/uL (4.8-10.8)
[2021-11-23 04:20] LABS: CREATININE 1.5 mg/dL (0.5-1.5); PHOSPHORUS 3.6 mg/dL (2.5-4.9); POTASSIUM 5.2 mmol/L (3.5-5.1)
[2021-11-23] MEDS: MEROPENEM 1 GM VIAL IVP SCH ×3 (06:04→21:22)
[2021-11-23 08:00] VITALS: BP 140/80
[2021-11-23] MEDS: AMLODIPINE 5 MG TAB PO SCH (08:59)
[2021-11-23] MEDS: TAMSULOSIN HCL 0.4 MG CAP.ER.24H PO SCH (08:59)
[2021-11-23] MEDS: Vitamin B Complex/Vit C/Folic Acid PO SCH (08:59)
[2021-11-23] MEDS: METOPROLOL SUCCINATE 50 MG TAB.SR.24H PO SCH (08:59)
[2021-11-23] MEDS: LACTATED RINGERS 1000ML 1,000 ML IV SCH (09:10)
[2021-11-23] MEDS: ACETAMINOPHEN 325 MG TAB PO PRN ×2 (12:55→21:22)
[2021-11-23 13:00] VITALS: BP 126/72
[2021-11-23 16:00] VITALS: BP 116/72
[2021-11-23 19:53] VITALS: BP 123/63
[2021-11-23 23:29] VITALS: BP 138/76
[2021-11-24 03:37] VITALS: BP 157/80
[2021-11-24] MEDS: ACETAMINOPHEN 325 MG TAB PO PRN ×3 (05:40→21:10)
[2021-11-24] MEDS: MEROPENEM 1 GM VIAL IVP SCH ×3 (05:40→21:09)
[2021-11-24 08:00] VITALS: BP 144/86
[2021-11-24] MEDS: AMLODIPINE 5 MG TAB PO SCH (08:05)
[2021-11-24] MEDS: TAMSULOSIN HCL 0.4 MG CAP.ER.24H PO SCH (08:05)
[2021-11-24] MEDS: Vitamin B Complex/Vit C/Folic Acid PO SCH (08:05)
[2021-11-24] MEDS: METOPROLOL SUCCINATE 50 MG TAB.SR.24H PO SCH (08:05)
[2021-11-24 11:18] VITALS: BP 140/77
[2021-11-24 16:00] VITALS: BP 127/73
[2021-11-24 19:16] VITALS: BP 116/63
[2021-11-25 04:16] LABS: HEMATOCRIT 32.9 % (42-54); MEAN CORPUSCULAR HEMOGLOBIN 29.3 pg (27.0-33.0); MEAN CORPUSCULAR HGB CONC 31.6 g/dL (32.0-36.0); MEAN CORPUSCULAR VOLUME 92.7 fL (79-99); PLATELET COUNT (AUTO) 139 K/uL (130-400); RED BLOOD CELL COUNT(AUTO) 3.55 MIL/uL (4.50-6.20); RED CELL DISTRIBUTION WIDTH 14.7 % (11.0-15.5); WHITE BLOOD COUNT (AUTO) 5.7 K/uL (4.8-10.8)
[2021-11-25 04:21] VITALS: BP 145/79
[2021-11-25 04:28] LABS: ALBUMIN 2.4 g/dL (3.5-5.0); BILIRUBIN,TOTAL 0.7 mg/dL (0.2-1.0); CREATININE 1.3 mg/dL (0.5-1.5); MAGNESIUM 1.9 mg/dL (1.80-2.40); POTASSIUM 3.4 mmol/L (3.5-5.1); TOTAL PROTEIN, SERUM 6.3 g/dL (6.0-8.3)
[2021-11-25 05:07] LABS: BAND NEUTROPHILS % (MANUAL) 2 % (0-2); EOSINOPHILS % (MANUAL) 9 % (1-6); LYMPHOCYTES % (MANUAL) 29 % (22-44); MAN.DIFF COMMENT-IMPRESSION MANUAL DIFFERENTIAL; MONOCYTES % (MANUAL) 11 % (2-9); PLATELET MORPHOLOGY COMMENT ADEQUATE; SEGMENTED NEUTROPHILS % 49 % (40-70)
[2021-11-25] MEDS: MEROPENEM 1 GM VIAL IVP SCH ×3 (06:21→22:21)
[2021-11-25] MEDS: KCL 20 MEQ ERTAB PO PRN ×2 (06:22→12:19)
[2021-11-25] MEDS: MAGNESIUM 2GM PREMIX 50ML 50 ML IV PRN (06:22)
[2021-11-25] MEDS: ACETAMINOPHEN 325 MG TAB PO PRN ×2 (06:48→16:05)
[2021-11-25 07:35] VITALS: BP 158/90
[2021-11-25] MEDS: AMLODIPINE 5 MG TAB PO SCH (09:08)
[2021-11-25] MEDS: TAMSULOSIN HCL 0.4 MG CAP.ER.24H PO SCH (09:08)
[2021-11-25] MEDS: METOPROLOL SUCCINATE 50 MG TAB.SR.24H PO SCH (09:08)
[2021-11-25] MEDS: Vitamin B Complex/Vit C/Folic Acid PO SCH (09:08)
[2021-11-25 12:00] VITALS: BP 136/85
[2021-11-25 16:00] VITALS: BP 141/78
[2021-11-25] MEDS ORDERED: ACETAMINOPHEN 325 MG TAB PO PRN (16:00)
[2021-11-25 16:35] LABS: INR 1.01 (0.85-1.15)
[2021-11-25 20:13] VITALS: BP 124/72
[2021-11-26] VITALS (7 sets, daily range): BP systolic 124–143; BP diastolic 66–89
[2021-11-26 04:41] LABS: EOSINOPHILS % (AUTO) 13.5 % (0.0-8.0); HEMATOCRIT 33.4 % (42-54); LYMPHOCYTES % (AUTO) 29.3 % (21.0-51.0); MEAN CORPUSCULAR HEMOGLOBIN 30.1 pg (27.0-33.0); MEAN CORPUSCULAR HGB CONC 32.9 g/dL (32.0-36.0); MEAN CORPUSCULAR VOLUME 91.3 fL (79-99); NEUTROPHILS % (AUTO) 41.8 % (40.0-77.0); PLATELET COUNT (AUTO) 168 K/uL (130-400); RED BLOOD CELL COUNT(AUTO) 3.66 MIL/uL (4.50-6.20); RED CELL DISTRIBUTION WIDTH 14.6 % (11.0-15.5); WHITE BLOOD COUNT (AUTO) 6.2 K/uL (4.8-10.8)
[2021-11-26 05:18] LABS: ALBUMIN 2.6 g/dL (3.5-5.0); BILIRUBIN,TOTAL 0.7 mg/dL (0.2-1.0); CREATININE 1.3 mg/dL (0.5-1.5); POTASSIUM 3.7 mmol/L (3.5-5.1); TOTAL PROTEIN, SERUM 6.6 g/dL (6.0-8.3)
[2021-11-26] MEDS: MEROPENEM 1 GM VIAL IVP SCH ×3 (06:24→23:09)
[2021-11-26] MEDS: Vitamin B Complex/Vit C/Folic Acid PO SCH (08:11)
[2021-11-26] MEDS: TAMSULOSIN HCL 0.4 MG CAP.ER.24H PO SCH (08:11)
[2021-11-26] MEDS: AMLODIPINE 5 MG TAB PO SCH (08:12)
[2021-11-26] MEDS: METOPROLOL SUCCINATE 50 MG TAB.SR.24H PO SCH (08:12)
[2021-11-26] MEDS: ACETAMINOPHEN 325 MG TAB PO PRN (15:56)
[2021-11-27 04:12] VITALS: BP 135/77
[2021-11-27 05:01] LABS: BASOPHILS % (AUTO) 0.9 % (0.0-5.0); EOSINOPHILS % (AUTO) 12.5 % (0.0-8.0); HEMATOCRIT 33.9 % (42-54); LYMPHOCYTES % (AUTO) 26.4 % (21.0-51.0); MEAN CORPUSCULAR HEMOGLOBIN 28.7 pg (27.0-33.0); MEAN CORPUSCULAR VOLUME 92.6 fL (79-99); MONOCYTES % (AUTO) 12.3 % (3.0-13.0); NEUTROPHILS % (AUTO) 45.9 % (40.0-77.0); PLATELET COUNT (AUTO) 205 K/uL (130-400); RED BLOOD CELL COUNT(AUTO) 3.66 MIL/uL (4.50-6.20); RED CELL DISTRIBUTION WIDTH 14.6 % (11.0-15.5); WHITE BLOOD COUNT (AUTO) 7.9 K/uL (4.8-10.8)
[2021-11-27 05:13] LABS: ALBUMIN 2.6 g/dL (3.5-5.0); BILIRUBIN,TOTAL 0.7 mg/dL (0.2-1.0); CREATININE 1.4 mg/dL (0.5-1.5); POTASSIUM 3.4 mmol/L (3.5-5.1); TOTAL PROTEIN, SERUM 6.5 g/dL (6.0-8.3)
[2021-11-27] MEDS: MEROPENEM 1 GM VIAL IVP SCH ×2 (06:00→14:52)
[2021-11-27] MEDS: TAMSULOSIN HCL 0.4 MG CAP.ER.24H PO SCH (07:54)
[2021-11-27] MEDS: Vitamin B Complex/Vit C/Folic Acid PO SCH (07:54)
[2021-11-27] MEDS: AMLODIPINE 5 MG TAB PO SCH (07:54)
[2021-11-27] MEDS: METOPROLOL SUCCINATE 50 MG TAB.SR.24H PO SCH (07:55)
[2021-11-27] MEDS: ACETAMINOPHEN 325 MG TAB PO PRN (07:56)
[2021-11-27 08:00] VITALS: BP 143/78
[2021-11-27 08:20] LABS: RETICULOCYTE % (AUTO) 0.81 % (0.42-2.23)
[2021-11-27 08:51] LABS: % IRON SATURATION 17.6 % (30-44)
== END 2021-11-27 18:00 | disposition home health service (06) | DRG 871 ==
LOC: EDH 10:03 → EDHIP 11:47 → 2AH 11-21 01:10 → 3AH 11-25 11:59
PROVIDERS: ADMIT Internal Medicine; ATTEND Internal Medicine
PROC: 0T25X0Z Change Drainage Device in Kidney, External Approach (ICD-10-PCS; principal; 2021-11-20)
PROC: 02H633Z Insertion of Infusion Device into Right Atrium, Percutaneous Approach (ICD-10-PCS; 2021-11-25)
PROC: 02HV33Z Insertion of Infusion Device into Superior Vena Cava, Percutaneous Approach (ICD-10-PCS; 2021-11-26)
DX: A41.50 Gram-negative sepsis, unspecified (principal); R65.21 Severe sepsis with septic shock; I48.20 Chronic atrial fibrillation, unspecified; N17.9 Acute kidney failure, unspecified; N13.6 Pyonephrosis; I10 Essential (primary) hypertension; R53.81 Other malaise; E66.9 Obesity, unspecified; N20.0 Calculus of kidney; E83.42 Hypomagnesemia; Z20.822 Contact with and (suspected) exposure to COVID-19; E87.6 Hypokalemia; E78.5 Hyperlipidemia, unspecified; N40.1 Benign prostatic hyperplasia with lower urinary tract symptoms; Z86.718 Personal history of other venous thrombosis and embolism; Z85.79 Personal history of other malignant neoplasms of lymphoid, hematopoietic and related tissues; Z93.6 Other artificial openings of urinary tract status; Z79.01 Long term (current) use of anticoagulants; Z82.49 Family history of ischemic heart disease and other diseases of the circulatory system; Z68.22 Body mass index [BMI] 22.0-22.9, adult
CPT/HCPCS: 36415; 50435; 71045; 74176; 80048; 80053; 81001; 82550; 82607; 82746; 82948; 83540; 83550; 83605; 83735; 84100; 84484; 84540; 85025; 85027; 85045; 85610; 85730; 87040; 87071; 87077; 87088; 87186; 87205; 87635; 93005; 99156; 99157; 99291; C1751; C1769; C1894; G0378; J1644; J2185; J2250; J2405; J3010; J3475; J3490; J7030; J7120; Q9967

== ENCOUNTER 2022-03-31 10:29 | Day surgery (SDC) | payer OTHER ==
[~2022-03-31] VITALS: Ht 172.7 cm; Wt 74.3 kg
[~2022-03-31 10:29] MED LIST changes: +CHOL500045 PO; +DIPH1TAB24 PO; -FLUT16H NS; +GABA300C PO; +MULT-1203 PO; -OMEP40CA21 PO; -RIVA20TA PO; -TAMS-1 PO
[2022-03-31 10:55] VITALS: BP 116/64
[2022-03-31] MEDS ORDERED: PROPOFOL 10 MG/ML 20ML VIAL IV ONE ×2 (12:51)
[2022-03-31] MEDS ORDERED: SCOPOLAMINE HYDROBROMIDE 1 EACH ADH..PATCH TD ONE (12:56)
[2022-03-31 13:10] VITALS: BP 106/66
[2022-03-31 13:20] VITALS: BP 111/69
[2022-03-31 13:35] VITALS: BP 125/67
[2022-03-31 14:17] VITALS: BP 98/69
[2022-04-01] MEDS ORDERED: HYDR25SU38 RC (13:22)
[2022-04-01] MEDS ORDERED: HYDR30CR79 RC (13:23)
== END 2022-03-31 14:00 | disposition home or self-care (01) ==
LOC: ENDO 10:29 → DAH 10:29 → ENDO 14:00
PROVIDERS: ATTEND Internal Medicine Gastroenterology
DX: R10.13 Epigastric pain (principal); R19.7 Diarrhea, unspecified; K21.00 Gastro-esophageal reflux disease with esophagitis, without bleeding; K22.2 Esophageal obstruction; K44.9 Diaphragmatic hernia without obstruction or gangrene; K29.00 Acute gastritis without bleeding; I10 Essential (primary) hypertension; E78.5 Hyperlipidemia, unspecified; J44.9 Chronic obstructive pulmonary disease, unspecified; G47.00 Insomnia, unspecified; G47.33 Obstructive sleep apnea (adult) (pediatric); Z85.828 Personal history of other malignant neoplasm of skin; Z98.49 Cataract extraction status, unspecified eye; Z82.3 Family history of stroke; Z82.49 Family history of ischemic heart disease and other diseases of the circulatory system; Z87.891 Personal history of nicotine dependence; Z72.89 Other problems related to lifestyle; Z85.51 Personal history of malignant neoplasm of bladder; Z86.010 Personal history of colon polyps; Z98.890 Other specified postprocedural states
CPT/HCPCS: 87426; 43239; 88305; 88342; 93005; J2704

== ENCOUNTER 2022-04-01 09:55 | Day surgery (SDC) | payer OTHER ==
[~2022-04-01] VITALS: Ht 172.7 cm; Wt 74.3 kg
[2022-04-01 10:06] VITALS: BP 104/84
[2022-04-01] MEDS ORDERED: 0.9%NACL 1000ML 1,000 ML IV ONE (10:30)
[2022-04-01] MEDS ORDERED: LIDOCAINE PF 100MG/5ML (2%) SYRINGE 5ML ONE (11:51)
[2022-04-01] MEDS ORDERED: EPHEDRINE SULFATE 50 MG/ML AMPULE ONE (11:53)
[2022-04-01] MEDS ORDERED: PROPOFOL 10 MG/ML 20ML VIAL IV ONE (11:54)
[2022-04-01] MEDS ORDERED: FENTANYL CITRATE PF 50 MCG/1 ML 2ML VIAL ONE (11:59)
[2022-04-01 12:50] VITALS: BP 100/59
[2022-04-01 13:00] VITALS: BP 123/60
[2022-04-01] MEDS ORDERED: HYDR25SU38 RC (13:22)
[2022-04-01] MEDS ORDERED: HYDR30CR79 RC (13:23)
[2022-04-01 13:30] VITALS: BP 123/58
== END 2022-04-01 14:00 | disposition home or self-care (01) ==
LOC: DAH 09:55
PROVIDERS: ATTEND Internal Medicine Gastroenterology
DX: R19.7 Diarrhea, unspecified (principal); R19.4 Change in bowel habit; K63.5 Polyp of colon; K62.1 Rectal polyp; K52.89 Other specified noninfective gastroenteritis and colitis; K64.1 Second degree hemorrhoids; I10 Essential (primary) hypertension; J44.9 Chronic obstructive pulmonary disease, unspecified; G47.33 Obstructive sleep apnea (adult) (pediatric); E78.5 Hyperlipidemia, unspecified; K21.9 Gastro-esophageal reflux disease without esophagitis; Z98.49 Cataract extraction status, unspecified eye; Z98.890 Other specified postprocedural states; Z86.010 Personal history of colon polyps; Z85.828 Personal history of other malignant neoplasm of skin; Z85.51 Personal history of malignant neoplasm of bladder; Z85.79 Personal history of other malignant neoplasms of lymphoid, hematopoietic and related tissues
CPT/HCPCS: 45385; 45380; 88305 ×2; J3010; J7030; J2001; J3490; J2704; A4620; A4215; A4223; A4222; A4221; A4663; A4606; 88342

== ENCOUNTER → 2023-05-29 | Outpatient (CLI) | payer OTHER ==
[~2023-05-29] MED LIST changes: +HYDR25SU38 RC
== END | disposition home or self-care (01) ==
LOC: SHCH 08:44
PROVIDERS: ATTEND Internal Medicine Cardiovascular Disease
DX: I08.1 Rheumatic disorders of both mitral and tricuspid valves (principal); I95.1 Orthostatic hypotension
CPT/HCPCS: 93306